=== PATIENT | male | born 1935 | race Caucasian/White ===

== ENCOUNTER 2023-10-26 18:15 | Emergency (ER) | payer OTHER, SELFPAY ==
[2023-10-26 18:16] VITALS: BP 152/85
[2023-10-26 18:36] LABS: % Basophils 1.6 % (0-2); % Eosinophils 2.4 % (0-6); % Immature Granulocytes 0.5 % (0-0.5); % Lymphocytes 40.2 % (20.5-51.1); % Monocytes 6.4 % (1.7-9.3); % Neutrophils 48.9 % (42.2-75.2); Absolute Basophils 0.1 10^3/uL (0-0.2); Absolute Eosinophils 0.1 10^3/uL (0-0.7); Absolute Lymphocytes 2.2 10^3/uL (1.2-3.4); Absolute Monocytes 0.4 10^3/uL (0.1-0.6); Absolute Neutrophils 2.7 10^3/uL (1.4-6.5); Hematocrit 35.7 % (39.0-52.0); Hemoglobin 12.1 g/dL (13.0-18.0); Mean Corp Hgb Conc. 33.9 g/dL (33.0-37.0); Mean Corpuscular Hgb 30.2 pg (27.0-31.0); Mean Platelet Volume 10.3 fL (7.4-10.4); Nucleated Red Blood Cells % 0 % (-); Platelet Count 154 10^3/uL (130-400); Red Blood Cell Count 4.01 10^6/uL (4.70-6.10); Red Cell Dist. Width 14.3 % (11.5-14.5); White Blood Cell Count 5.5 10^3/uL (4.8-10.8)
[2023-10-26 18:47] LABS: ALT (SGPT) 14 U/L (0-50); AST (SGOT) 23 U/L (17-59); Albumin 4.7 g/dl (3.5-5.0); Alkaline Phosphatase 62 U/L (38-126); Blood Urea Nitrogen 28 mg/dl (9-20); Carbon Dioxide 27 mmol/L (22-30); Chloride 99 mmol/L (98-107); Glucose 143 mg/dl (70-99); Potassium 3.4 mmol/L (3.5-5.1); Sodium 134 mmol/L (135-145); Total Bilirubin 1.2 mg/dl (0.2-1.3); Total Protein 8.4 g/dl (6.3-8.2); eGFR 48.95
[2023-10-26 19:47] VITALS: BP 154/80
[2023-10-26 20:00] VITALS: BP 126/115
--- NOTE | 2023-10-26 20:41 | ED.GENMED ---
History of Present Illness
General
Chief Complaint: Blood Pressure Problem
Source: patient and spouse
Exam Limitations: none
Time Seen by Provider: 10/26/23 20:04
Nursing documentation reviewed up to this point in time: agreed with
Travel History
Have you had any contact with someone who has COVID-19?: No
Do you have any symptoms of coronavirus? Fever > 100 degrees, chills, cough, shortness of breath, sore throat, loss of taste or smell, muscle aches, or headache?: No
History of Present Illness
History of Present Illness:
This is an 88-year-old gentleman who resides at home with his . He has history of hypertension maintained on hydrochlorothiazide and spironolactone. He states blood pressure is generally well-controlled on these 2 medications but over the past
week he is concerned that blood pressure has been elevated along with overall not feeling well over the past week. He admits to intermittent nausea without vomiting, decreased appetite over the past week, intermittent loose stools alternating with
constipation passing some firm to hard stools accompanied with intermittent mid to lower abdominal discomfort. He denies abdominal pain and admits that when he massages his lower abdomen the discomfort resolves. He did take a dose of Pepto-Bismol
earlier today and abdominal discomfort has improved.
With elevated blood pressure especially yesterday with systolic blood pressure in the 180s he called his PCP and was recommended to double up his hydrochlorothiazide and spironolactone which she has done so since yesterday. Despite doing so his
blood pressure remains elevated prompting ED visit.
No close contacts with similar symptoms. He denies fever nor chills. He denies headache. He did have brief episode of dizziness 1 week ago without other associated symptoms. No further episodes of dizziness.
He admits to somewhat chronic urinary hesitancy but denies dysuria nor hematuria, denies neck nor back pain, denies chest pain nor palpitations, no vision difficulty.
No recent travel nor recent antibiotic use.
No prior abdominal surgeries.
His only daily medications are hydrochlorothiazide and spironolactone.
Past History
Past History
ED Past Medical History: HTN and Other (Macular degeneration, glaucoma)
ED Past Surgical History: None
Social History
Tobacco: Former smoker
Alcohol: None
Drug: None
Personal:
Living: with family
Employment: Retired
Family History
Family History: Other (Noncontributory)
Phy Exam
Physical Exam
Physical Exam:
GENERAL: 88-year-old gentleman appears his stated age, awake and alert, pleasant, appears in no acute distress. is accompanying
EYE: pupils equal and reactive. anicteric
NECK: Supple, nontender, no meningismus, no significant adenopathy.
ENT: posterior pharynx is clear, oral mucosa is dry. No rhinorrhea.
CARDIAC: Regular rate and rhythm. no murmur.
LUNGS: Clear breath sounds bilaterally, no acute respiratory distress, no wheezes/rales/rhonchi
ABDOMEN: Soft, nondistended, without focal tenderness, no r/g, no cvat. normoactive BS.
NEUROLOGICAL: Alert and oriented x3, no focal neuro deficits. Gait is steady.
SKIN: Warm and dry, normal color, skin intact. No rash.
MUSCULOSKELETAL: No C/C/E. peripheral pulses are full and equal b/l. No palpable tenderness.
PSYCH: Normal and appropriate interaction.
Course
Orders/Labs/Results
Orders:
Orders
10/26/23 18:21
Electrocardiogram (*1) Urgent
Reason for Study: Hypertension, Benign
EKG- Treatment ONCE
10/26/23 18:29
Complete Blood Count/With Diff Urgent
Comprehensive Metabolic Panel Urgent
10/26/23 20:39
0.9% Sodium Chloride 1000 ml [Nss] 1,000 ml IV BOLUS
Potassium Chloride Powder [Klor-Con] 20 meq PO NOW STA
10/26/23 20:51
Urinalysis Reflex To Culture Urgent
Date Specimen was Collected: 10/26/23
Time Specimen was Collected: 20:48
Abnormal Lab Results
10/26/23
18:29
RBC 4.01 L 10^6/uL
(4.70-6.10)
Hgb 12.1 L g/dL
(13.0-18.0)
Hct 35.7 L %
(39.0-52.0)
Sodium 134 L mmol/L
(135-145)
Potassium 3.4 L mmol/L
(3.5-5.1)
BUN 28 H mg/dl
(9-20)
Creatinine 1.4 H mg/dL
(0.7-1.3)
Glucose 143 H mg/dl
(70-99)
Total Protein 8.4 H g/dl
(6.3-8.2)
10/26/23 18:29
10/26/23 18:29
Vital Signs
Initial and Last Documented VS:
Initial Vital Signs
Temp Pulse Resp BP Pulse Ox
97.7 F 80 18 152/85 96
10/26/23 18:16 10/26/23 18:16 10/26/23 18:16 10/26/23 18:16 10/26/23 18:16
Last Documented Vital Signs
Temp Pulse Resp BP Pulse Ox
97.7 F 65 14 146/76 97
10/26/23 18:16 10/26/23 22:54 10/26/23 22:54 10/26/23 22:54 10/26/23 22:54
MDM/Problems Addressed
Differential Diagnosis Includes:
Patient presents with accelerated hypertension with longstanding history of hypertension that is generally well-controlled.
Initial blood pressure 152/85, has improved to 126 systolic without intervention.
Along with elevated blood pressure this week patient has had a constitution of symptoms including nausea, poor oral intake, intermittent loose stools with constipation and intermittent lower abdominal discomfort.
Concern for gastroenteritis, constipation, UTI, less likely intermittent bowel obstruction.
Clinically appears dry, concern for acute kidney injury, electrolyte abnormality.
Labs thus far reveal mild but stable anemia, normal white blood cell count of 5.5.
BUN and creatinine are elevated at 28/1.4 have trended up from previous results April 2023 at 19/1.0.
Mild hyponatremia at 137 along with very mild hypokalemia of 3.4. This could be related to increased dose of diuretics since yesterday along with poor oral intake over the past week.
Will hydrate with IV fluids and replete potassium orally.
Will check urinalysis.
Abdominal exam is soft, nontender. Imaging considered but will hold off at this point especially with reassuring, nontender exam and reassuring labs.
*Pulse Oximetry
Patient hypoxic: no
*EKG
Interpreted by ED Provider?: Yes
Interpretation: normal
Comparison EKG: no comparison EKG present
Rate: normal
Rhythm: sinus
[place]: normal axis
Interval: normal interval
QRS Pattern: normal QRS
Ischemia: no ischemia
*Category Development Manager Interpretation
Rate: normal
Interpretation: normal
Rhythm: sinus
*Critical Care Note
Total Time (30-74mins, 75-104mins- exclusive of procedures): Not Applicable
Update Note
Update Note:
10/26/2023 2254 PM
Patient feeling well.
No return of abdominal discomfort and abdomen remains soft and nontender.
Systolic blood pressure 120s to 150.
Urinalysis is negative.
Patient will be discharged to home and recommended to maintain a bland diet, stay well-hydrated on a daily basis.
Recommend he continue to monitor his blood pressure at home but only once daily, record results and follow-up with PCP for recheck.
ED Attending Note
-
Portions of this chart may have been created with voice recognition software.� Occasional wrong word or��sound alike� substitutions may have occurred due to the inherent limitations of voice recognition software.
Discharge Plan
Departure
Patient Disposition: Home (Routine Discharge)
Date of Disposition: 10/26/23
Time of Disposition: 22:50
Patient with high blood pressure during this ER visit?: No
Discharge Problem:
Accelerated hypertension, Gastroenteritis
Instructions: High Blood Pressure (DC), [place] Diet
Referrals:
Arnold Rivera MD [Family Provider] - Call in 1-3 days for appt
Interventions
Interventions:
*Risk Screen - Suicide Last Done: 10/26/23 18:16
*General Assessment Last Done: 10/26/23 18:16
*Neglect/Abuse Screening Last Done: 10/26/23 18:16
ED- Fall Risk Assessment Last Done: 10/26/23 22:58
*ED COVID-19 Vaccine History Last Done: 10/26/23 22:58
*Nursing Disposition Last Done: 10/26/23 22:58
[place]-[facility] Assessment Last Done: 10/26/23 19:52
ED- Cardiac Assessment Last Done: 10/26/23 19:52
ED- Neurological Assessment Last Done: 10/26/23 19:52
ED- Pulmonary Assessment Last Done: 10/26/23 19:52
Discharge Date and Time
Discharge Date/Time: 10/26/23 22:59
[2023-10-26] MEDS: NSS 1000 IV (20:44)
[2023-10-26] MEDS: KLOR-CON 20 MEQ PO (20:44)
[2023-10-26 20:58] LABS: Urine Albumin Negative (Neg - Trace); Urine Bilirubin Negative (Negative); Urine Character Clear (Clear); Urine Color Straw; Urine Glucose Negative (Negative); Urine Ketone Negative (Negative); Urine Leukocyte Negative (Negative); Urine Nitrite Negative (Negative); Urine Occult Blood Negative (Negative); Urine Urobilinogen Negative (Neg - 1+)
[2023-10-26 21:00] VITALS: BP 147/78
[2023-10-26 22:00] VITALS: BP 153/82
[2023-10-26 22:54] VITALS: BP 146/76
== END 2023-10-26 22:59 | disposition home or self-care (01) ==
LOC: EMR 18:15
PROVIDERS: Emergency Medicine; EMERGENCY PHYSICIAN Emergency Medicine; FAMILY PHYSICIAN Internal Medicine Geriatric Medicine
DX: K52.9 Noninfective gastroenteritis and colitis, unspecified (principal); I10 Essential (primary) hypertension; D64.9 Anemia, unspecified; E87.1 Hypo-osmolality and hyponatremia; E87.6 Hypokalemia; Z87.891 Personal history of nicotine dependence
CPT/HCPCS: 99284; 96360; 80053; 81003; 85025; 93005

== ENCOUNTER → 2023-10-29 07:32 | Outpatient (REF) | payer OTHER, SELFPAY ==
[2023-10-29 09:03] LABS: % Eosinophils 5.8 % (0-6); % Immature Granulocytes 0.2 % (0-0.5); % Lymphocytes 40.3 % (20.5-51.1); % Monocytes 9.6 % (1.7-9.3); % Neutrophils 42.1 % (42.2-75.2); Absolute Basophils 0.1 10^3/uL (0-0.2); Absolute Eosinophils 0.3 10^3/uL (0-0.7); Absolute Monocytes 0.5 10^3/uL (0.1-0.6); Absolute Neutrophils 2.1 10^3/uL (1.4-6.5); Hematocrit 35.3 % (39.0-52.0); Hemoglobin 11.3 g/dL (13.0-18.0); Mean Corpuscular Hgb 29.7 pg (27.0-31.0); Mean Corpuscular Volume 92.7 fL (80.0-94.0); Mean Platelet Volume 10.9 fL (7.4-10.4); Nucleated Red Blood Cells % 0 % (-); Platelet Count 157 10^3/uL (130-400); Red Blood Cell Count 3.81 10^6/uL (4.70-6.10); Red Cell Dist. Width 14.1 % (11.5-14.5)
[2023-10-29 09:12] LABS: Urine Albumin Negative (Neg - Trace); Urine Bilirubin Negative (Negative); Urine Character Clear (Clear); Urine Color Yellow; Urine Glucose Negative (Negative); Urine Ketone Negative (Negative); Urine Leukocyte Negative (Negative); Urine Nitrite Negative (Negative); Urine Occult Blood Negative (Negative); Urine Specific Gravity 1.005 (<1.030); Urine Urobilinogen Negative (Neg - 1+)
[2023-10-29 10:26] LABS: ALT (SGPT) 13 U/L (0-50); AST (SGOT) 18 U/L (17-59); Albumin 4.5 g/dl (3.5-5.0); Alkaline Phosphatase 57 U/L (38-126); Blood Urea Nitrogen 25 mg/dl (9-20); Calcium 8.9 mg/dl (8.4-10.2); Carbon Dioxide 25 mmol/L (22-30); Chloride 102 mmol/L (98-107); Glucose 104 mg/dl (70-99); HDL Cholesterol 55 mg/dl; LDL Cholesterol, Calculated 116 mg/dl; Potassium 3.9 mmol/L (3.5-5.1); Sodium 136 mmol/L (135-145); Total Bilirubin 1.8 mg/dl (0.2-1.3); Total Cholesterol 196 mg/dl (50-199); Total Protein 7.8 g/dl (6.3-8.2); Triglyceride 127 mg/dl (10-149); Very Low Density Lipoprotein 25 mg/dl (0-30); eGFR 45.06
[2023-10-29 10:54] LABS: TSH Reflex To Free T4 3.13 uIU/ml (0.47-4.68)
[2023-10-29 11:30] LABS: Glycohemoglobin (HgbA1c) 5.3 % (4.0-5.6)
== END ==
LOC: HWLAB 07:32
PROVIDERS: ATTENDING PHYSICIAN Nurse Practitioner Family
DX: I10 Essential (primary) hypertension (principal); E78.2 Mixed hyperlipidemia; R73.01 Impaired fasting glucose
CPT/HCPCS: 36415; 80053; 80061; 81003; 83036; 84443; 85025

== ENCOUNTER → 2023-11-20 06:26 | Day surgery (SDC) | payer OTHER, SELFPAY | LOC: GI 06:26 | PROVIDERS: ATTENDING PHYSICIAN Internal Medicine Gastroenterology; FAMILY PHYSICIAN Internal Medicine Geriatric Medicine | DX: K22.89 Other specified disease of esophagus (principal); R10.13 Epigastric pain; K29.50 Unspecified chronic gastritis without bleeding | CPT/HCPCS: 43239; 88305; 88342 ==

== ENCOUNTER → 2023-12-04 07:31 | Outpatient (REF) | payer OTHER, SELFPAY ==
[2023-12-04 09:59] LABS: % Eosinophils 7.6 % (0-6); % Immature Granulocytes 0.6 % (0-0.5); % Lymphocytes 42.1 % (20.5-51.1); % Monocytes 7.4 % (1.7-9.3); % Neutrophils 39.3 % (42.2-75.2); Absolute Basophils 0.2 10^3/uL (0-0.2); Absolute Eosinophils 0.4 10^3/uL (0-0.7); Absolute Lymphocytes 2.1 10^3/uL (1.2-3.4); Absolute Monocytes 0.4 10^3/uL (0.1-0.6); Hematocrit 33.9 % (39.0-52.0); Hemoglobin 10.9 g/dL (13.0-18.0); Mean Corp Hgb Conc. 32.2 g/dL (33.0-37.0); Mean Corpuscular Hgb 29.4 pg (27.0-31.0); Mean Corpuscular Volume 91.4 fL (80.0-94.0); Mean Platelet Volume 10.3 fL (7.4-10.4); Nucleated Red Blood Cells % 0 % (-); Platelet Count 197 10^3/uL (130-400); Red Blood Cell Count 3.71 10^6/uL (4.70-6.10); Red Cell Dist. Width 12.7 % (11.5-14.5)
[2023-12-04 10:13] LABS: ALT (SGPT) 11 U/L (0-50); AST (SGOT) 19 U/L (17-59); Albumin 4.3 g/dl (3.5-5.0); Alkaline Phosphatase 55 U/L (38-126); Blood Urea Nitrogen 28 mg/dl (9-20); Calcium 9.5 mg/dl (8.4-10.2); Carbon Dioxide 25 mmol/L (22-30); Chloride 102 mmol/L (98-107); Direct Bilirubin 0.4 mg/dl (0.0-0.4); Glucose 109 mg/dl (70-99); Iron 149 ug/dl (49-181); Potassium 3.8 mmol/L (3.5-5.1); Sodium 137 mmol/L (135-145); Total Bilirubin 1.2 mg/dl (0.2-1.3); Total Protein 7.8 g/dl (6.3-8.2); eGFR 38.78
[2023-12-04 10:25] LABS: Percent Saturation 52 % (20-50); Total Iron Binding Capacity 285 ug/dl (261-462)
== END ==
LOC: HWLAB 07:31
PROVIDERS: ATTENDING PHYSICIAN Internal Medicine Gastroenterology; FAMILY PHYSICIAN Nurse Practitioner Family
DX: I10 Essential (primary) hypertension (principal); D64.9 Anemia, unspecified; R79.89 Other specified abnormal findings of blood chemistry; E80.4 Gilbert syndrome
CPT/HCPCS: 36415; 80053; 82248; 82728; 83540; 83550; 85025

== ENCOUNTER → 2023-12-07 07:34 | Outpatient (REF) | payer OTHER, SELFPAY | LOC: HWRAD 07:34 | PROVIDERS: ATTENDING PHYSICIAN Internal Medicine Gastroenterology; FAMILY PHYSICIAN Nurse Practitioner Family | DX: E80.4 Gilbert syndrome (principal) | CPT/HCPCS: 76700 ==

== ENCOUNTER → 2024-02-29 08:35 | Outpatient (REF) | payer OTHER, SELFPAY ==
[2024-02-29 11:50] LABS: Albumin 4.4 g/dl (3.5-5.0); Blood Urea Nitrogen 30 mg/dl (9-20); Calcium 9.4 mg/dl (8.4-10.2); Carbon Dioxide 29 mmol/L (22-30); Chloride 101 mmol/L (98-107); Glucose 90 mg/dl (70-99); Phosphorus 3.8 mg/dl (2.5-4.5); Potassium 3.7 mmol/L (3.5-5.1); Sodium 138 mmol/L (135-145); Uric Acid 5.8 mg/dl (3.5-8.5); eGFR 48.65
[2024-02-29 12:01] LABS: Protein/creatinine Ratio 0.1; Urine Protein 6 mg/dl
[2024-02-29 12:05] LABS: Microalbumin, Random Urine <0.6 mg/dl (0.6-1.7)
[2024-02-29 12:25] LABS: PSA, Total - Diagnostic 0.33 ng/ml (0.0-4.0); TSH Reflex To Free T4 2.34 uIU/ml (0.47-4.68)
[2024-03-02 10:22] LABS: Intact PTH 24.9 pg/ml (13.6-85.8)
[2024-03-02 12:33] LABS: 24 Hour Urine Total Volume Random mL; Urine Collection Length Random hr; Urine Free Kappa Light Chains 34.08 mg/L (0.00-32.90); Urine Free Lambda Light Chains 2.61 mg/L (0.00-3.79)
[2024-03-02 22:49] LABS: Alpha 1 Globulin 0.25 g/dL (0.19-0.46); Alpha 2 Globulin 0.62 g/dL (0.48-1.05); SPEP IFE Reflex Not Done; Total Protein-Electrophoresis 7.2 g/dL (6.3-8.2)
== END ==
LOC: HWLAB 08:35
PROVIDERS: ATTENDING PHYSICIAN Specialist; FAMILY PHYSICIAN Internal Medicine Geriatric Medicine
DX: R63.4 Abnormal weight loss (principal); D64.9 Anemia, unspecified; C61 Malignant neoplasm of prostate; N18.32 Chronic kidney disease, stage 3b
CPT/HCPCS: 36415; 80069; 82043; 82570; 83521; 83970; 84153; 84155; 84156; 84165; 84443; 84550; 86335

== ENCOUNTER → 2024-06-23 07:25 | Outpatient (REF) | payer OTHER, SELFPAY ==
[2024-06-23 09:24] LABS: % Basophils 1.8 % (0-2); % Eosinophils 4.2 % (0-6); % Immature Granulocytes 0.5 % (0-0.5); % Monocytes 7.2 % (1.7-9.3); % Neutrophils 44.3 % (42.2-75.2); Absolute Basophils 0.1 10^3/uL (0-0.2); Absolute Eosinophils 0.2 10^3/uL (0-0.7); Absolute Lymphocytes 1.8 10^3/uL (1.2-3.4); Absolute Monocytes 0.3 10^3/uL (0.1-0.6); Absolute Neutrophils 1.9 10^3/uL (1.4-6.5); Hematocrit 36.2 % (39.0-52.0); Hemoglobin 11.9 g/dL (13.0-18.0); Mean Corp Hgb Conc. 32.9 g/dL (33.0-37.0); Mean Corpuscular Hgb 29.9 pg (27.0-31.0); Nucleated Red Blood Cells % 0 % (-); Platelet Count 153 10^3/uL (130-400); Red Blood Cell Count 3.98 10^6/uL (4.70-6.10); Red Cell Dist. Width 13.9 % (11.5-14.5); White Blood Cell Count 4.3 10^3/uL (4.8-10.8)
[2024-06-23 09:43] LABS: Urine Albumin Negative (Neg - Trace); Urine Bilirubin Negative (Negative); Urine Character Clear (Clear); Urine Color Straw; Urine Glucose Negative (Negative); Urine Ketone Negative (Negative); Urine Leukocyte Negative (Negative); Urine Nitrite Negative (Negative); Urine Occult Blood Negative (Negative); Urine Urobilinogen Negative (Neg - 1+)
[2024-06-23 10:27] LABS: Glycohemoglobin (HgbA1c) 5.3 % (4.0-5.6)
[2024-06-23 10:40] LABS: ALT (SGPT) 16 U/L (0-50); AST (SGOT) 21 U/L (17-59); Albumin 4.5 g/dl (3.5-5.0); Alkaline Phosphatase 38 U/L (38-126); Blood Urea Nitrogen 22 mg/dl (9-20); Calcium 9.2 mg/dl (8.4-10.2); Carbon Dioxide 26 mmol/L (22-30); Chloride 102 mmol/L (98-107); Glucose 103 mg/dl (70-99); HDL Cholesterol 53 mg/dl; LDL Cholesterol, Calculated 129 mg/dl; Potassium 4.2 mmol/L (3.5-5.1); Sodium 140 mmol/L (135-145); Total Bilirubin 1.5 mg/dl (0.2-1.3); Total Cholesterol 208 mg/dl (50-199); Total Protein 7.7 g/dl (6.3-8.2); Triglyceride 134 mg/dl (10-149); Very Low Density Lipoprotein 26 mg/dl (0-30); eGFR 53.17
[2024-06-23 10:56] LABS: Vitamin D, 25-OH*** 56.7 ng/mL (30-80)
[2024-06-23 11:09] LABS: TSH Reflex To Free T4 5.71 uIU/ml (0.47-4.68)
[2024-06-23 11:37] LABS: Free T4 0.97 ng/dl (0.78-2.19)
== END ==
LOC: HWLAB 07:25
PROVIDERS: ATTENDING PHYSICIAN Specialist; FAMILY PHYSICIAN Nurse Practitioner Family
DX: I10 Essential (primary) hypertension (principal); D64.9 Anemia, unspecified; R63.4 Abnormal weight loss; K21.9 Gastro-esophageal reflux disease without esophagitis; R79.89 Other specified abnormal findings of blood chemistry; K59.09 Other constipation; E78.2 Mixed hyperlipidemia; R73.01 Impaired fasting glucose; K80.20 Calculus of gallbladder without cholecystitis without obstruction
CPT/HCPCS: 36415; 80053; 80061; 81003; 82306; 83036; 84439; 84443; 85025

== ENCOUNTER → 2024-07-18 09:44 | Outpatient (REF) | payer OTHER, SELFPAY | LOC: HWRCS 09:44 | PROVIDERS: ATTENDING PHYSICIAN Nurse Practitioner Primary Care | DX: R01.1 Cardiac murmur, unspecified (principal); I10 Essential (primary) hypertension | CPT/HCPCS: 93005; 93306 ==

== ENCOUNTER → 2024-09-08 08:06 | Outpatient (REF) | payer OTHER, SELFPAY ==
[2024-09-08 10:55] LABS: % Basophils 1.5 % (0-2); % Eosinophils 4.7 % (0-6); % Immature Granulocytes 0.7 % (0-0.5); % Lymphocytes 37.6 % (20.5-51.1); % Monocytes 6.5 % (1.7-9.3); Absolute Basophils 0.1 10^3/uL (0-0.2); Absolute Eosinophils 0.3 10^3/uL (0-0.7); Absolute Monocytes 0.4 10^3/uL (0.1-0.6); Absolute Neutrophils 2.6 10^3/uL (1.4-6.5); Hematocrit 35.7 % (39.0-52.0); Hemoglobin 11.6 g/dL (13.0-18.0); Mean Corp Hgb Conc. 32.5 g/dL (33.0-37.0); Mean Corpuscular Hgb 30.2 pg (27.0-31.0); Mean Platelet Volume 11.3 fL (7.4-10.4); Nucleated Red Blood Cells % 0 % (-); Platelet Count 141 10^3/uL (130-400); Red Blood Cell Count 3.84 10^6/uL (4.70-6.10); Red Cell Dist. Width 13.5 % (11.5-14.5); White Blood Cell Count 5.4 10^3/uL (4.8-10.8)
[2024-09-08 11:11] LABS: Albumin 4.6 g/dl (3.5-5.0); Blood Urea Nitrogen 24 mg/dl (9-20); Calcium 8.7 mg/dl (8.4-10.2); Carbon Dioxide 26 mmol/L (22-30); Chloride 102 mmol/L (98-107); Glucose 99 mg/dl (70-99); Phosphorus 3.5 mg/dl (2.5-4.5); Potassium 3.9 mmol/L (3.5-5.1); Sodium 138 mmol/L (135-145); eGFR 58.53
== END ==
LOC: HWLAB 08:06
PROVIDERS: ATTENDING PHYSICIAN Specialist; FAMILY PHYSICIAN Internal Medicine Geriatric Medicine
DX: R79.89 Other specified abnormal findings of blood chemistry (principal); E78.2 Mixed hyperlipidemia; E61.1 Iron deficiency; I10 Essential (primary) hypertension
CPT/HCPCS: 36415; 80069; 85025

== ENCOUNTER → 2024-10-03 07:51 | Outpatient (REF) | payer OTHER, SELFPAY ==
[2024-10-03 09:42] LABS: % Basophils 1.4 % (0-2); % Eosinophils 3.5 % (0-6); % Immature Granulocytes 0.8 % (0-0.5); % Lymphocytes 36.2 % (20.5-51.1); % Monocytes 7.7 % (1.7-9.3); % Neutrophils 50.4 % (42.2-75.2); Absolute Basophils 0.1 10^3/uL (0-0.2); Absolute Eosinophils 0.2 10^3/uL (0-0.7); Absolute Lymphocytes 1.8 10^3/uL (1.2-3.4); Absolute Monocytes 0.4 10^3/uL (0.1-0.6); Absolute Neutrophils 2.6 10^3/uL (1.4-6.5); Hematocrit 35.1 % (39.0-52.0); Hemoglobin 11.4 g/dL (13.0-18.0); Mean Corp Hgb Conc. 32.5 g/dL (33.0-37.0); Mean Corpuscular Hgb 30.2 pg (27.0-31.0); Mean Corpuscular Volume 92.9 fL (80.0-94.0); Nucleated Red Blood Cells % 0 % (-); Platelet Count 146 10^3/uL (130-400); Red Blood Cell Count 3.78 10^6/uL (4.70-6.10); Red Cell Dist. Width 13.4 % (11.5-14.5); White Blood Cell Count 5.1 10^3/uL (4.8-10.8)
[2024-10-03 09:49] LABS: ALT (SGPT) 18 U/L (0-50); AST (SGOT) 19 U/L (17-59); Albumin 4.4 g/dl (3.5-5.0); Alkaline Phosphatase 50 U/L (38-126); Blood Urea Nitrogen 23 mg/dl (9-20); Calcium 9.1 mg/dl (8.4-10.2); Carbon Dioxide 25 mmol/L (22-30); Chloride 104 mmol/L (98-107); Glucose 107 mg/dl (70-99); HDL Cholesterol 48 mg/dl; LDL Cholesterol, Calculated 54 mg/dl; Potassium 3.9 mmol/L (3.5-5.1); Sodium 137 mmol/L (135-145); Total Bilirubin 1.5 mg/dl (0.2-1.3); Total Cholesterol 123 mg/dl (50-199); Total Protein 7.1 g/dl (6.3-8.2); Triglyceride 106 mg/dl (10-149); Very Low Density Lipoprotein 21 mg/dl (0-30); eGFR 58.53
[2024-10-03 10:10] LABS: Free T4 0.95 ng/dl (0.78-2.19)
[2024-10-03 10:23] LABS: TSH 3.33 uIU/ml (0.47-4.68)
[2024-10-03 10:59] LABS: Folate 15.4 ng/ml (2.76-20); Vitamin B12 855 pg/ml (239-931)
== END ==
LOC: HWLAB 07:51
PROVIDERS: ATTENDING PHYSICIAN Nurse Practitioner Primary Care; REFERRING PHYSICIAN Specialist
DX: E78.2 Mixed hyperlipidemia (principal); N18.31 Chronic kidney disease, stage 3a; D64.9 Anemia, unspecified; E03.9 Hypothyroidism, unspecified
CPT/HCPCS: 36415; 80053; 80061; 82607; 82746; 84439; 84443; 85025

== ENCOUNTER → 2025-01-24 09:15 | Outpatient (REF) | payer OTHER, SELFPAY | LOC: WDC 09:15 | PROVIDERS: ATTENDING PHYSICIAN Nurse Practitioner Primary Care | DX: N63.42 Unspecified lump in left breast, subareolar (principal) | CPT/HCPCS: 76642; 77062; 77066 ==

== ENCOUNTER → 2025-02-13 10:01 | Outpatient (REF) | payer SELFPAY | LOC: HWRAD 10:01 | PROVIDERS: ATTENDING PHYSICIAN Nurse Practitioner Primary Care; REFERRING PHYSICIAN Internal Medicine | DX: E78.2 Mixed hyperlipidemia (principal); I25.10 Atherosclerotic heart disease of native coronary artery without angina pectoris | CPT/HCPCS: 75571 ==

== ENCOUNTER 2025-02-17 11:41 | Inpatient (IN) | payer OTHER, SELFPAY ==
[2025-02-15] VITALS (8 sets, daily range): BP systolic 120–181; BP diastolic 58–116; BMI 21.1; BMI 20.8
[2025-02-15 16:41] LABS: Glucose - Point of Care 108 mg/dl (70-99)
--- NOTE | 2025-02-15 16:48 | ED.CVA ---
History of Present Illness
General
Chief Complaint: CVA/TIA Symptoms
Source: patient and spouse
Exam Limitations: none
Time Seen by Provider: 02/15/25 16:40
Nursing documentation reviewed up to this point in time: agreed with
Onset of Stroke Symptoms
Onset of symptoms known: Yes
Date of onset of symptoms: 02/15/25
History of Present Illness
History of Present Illness:
89-year-old male presents emergency department due to difficulty speaking that began about 30 minutes prior to arrival. He was last seen normal 2 hours ago by his . He has a history of a stroke in the past about 2002.
Past History
Past History
ED Past Medical History: CVA, HTN and Other (Macular degeneration, glaucoma)
ED Past Surgical History: None
Social History
Tobacco: Former smoker
Alcohol: None
Drug: None
Personal:
Living: with family
Employment: Retired
Family History
Family History: Other (Noncontributory)
Review of Systems
Review of Systems
Allergies reviewed?: Yes
All Other Systems: Not applicable
Constitutional: Reports no symptoms
EENT: Reports no symptoms
Respiratory: Reports no symptoms
Cardiac: Reports no symptoms
ABD/GI: Reports no symptoms
: Reports no symptoms
Musculoskeletal: Reports no symptoms
Skin: Reports no symptoms
Neurological: Reports other (Difficulty speaking)
Endocrine: Reports no symptoms
Hematologic/Lymphatic: Reports no symptoms
Psychiatric: Reports no symptoms
Phy Exam
Physical Exam
Physical Exam:
Physical Exam
General: no apparent distress, not acutely ill
Neck: supple. no meningeal signs. normal posterior pharynx
Heart: s1/s2 regular rate and rhythm, no murmur. equal radial
pulses.
HEENT: Pupils equal round reactive to light, EOMI
Lungs: no acute respiratory distress. clear bilaterally
Abdomen: normal bowel sounds. not tender. no CVAT
Neuro: alert and oriented. no focal neurological deficits cranial nerves II through XII intact, except intermittent expressive aphasia
Skin: no rash
Psychiatric: well kept. interactive and cooperative
Extremities: no edema. no calf tenderness. negative homans. good distal pulses
NIH Stroke Score
Level of Consciousness: 0 - Alert
LOC questions: 0-Answers both correctly
LOC Commands: 0-Performs both correctly
Best Gaze: 0-Normal
Visual Joseph: 0=Normal, no visual loss
Facial palsy: 0=Normal, symmetrical
Motor - Right Arm: 0=No drift 10 seconds
Motor - Left Arm: 0=No drift 10 seconds
Motor - Right Le-No drift 5 seconds
Motor - Left Le-No drift 5 seconds
Limb Ataxia: 0-Absent
Sensation: 0-Normal
Best Language: 1-Mild aphasia
Dysarthria: 0-Normal
Extinction and Inattention: 0-No abnormality
Total Score:: 1
Course
Orders/Labs/Results
Orders:
Orders
02/15/25 16:40
Electrocardiogram (*1) Stat
Reason for Study: Other
Other Reason for Exam: neuro symptoms
CT BRAIN PERF STROKE ALERT Urgent
Comment:
Reason For Exam: expressive aphasia [address] HEAD STROKE ALERT W/o Cont Urgent
Comment:
Reason For Exam: expressive aphasia [address] HEAD/NECK ANG STROKE ALERT Urgent
Comment:
Reason For Exam: expressive aphasia 30 min ago
Cardiac Monitoring- Treatment ONCE
EKG- Treatment ONCE
IV Insert/Care/Rem.- Treatment PRN
02/15/25 16:47
Complete Blood Count/With Diff Urgent
Comprehensive Metabolic Panel Urgent
Erythrocyte Sed Rate Urgent
Comment: ADD ON
Glycohemoglobin (HgbA1c) Urgent
PTT Urgent
Prothrombin Time Urgent
02/15/25 19:04
Admit/Transfer Patient As Directed
Co-Sign Provider:
Level of Care: Observation services
Assign to:: Telemetry
Physician / Group: Mario Burton
Diagnosis: TIA, severe stenosis proximal Lf ICA
Reason for Telemetry: CVA/TIA
Date to Stop Telemetry: 02/18/25
Time to Stop Telemetry: 11:00
PRN Pain Medication Management As Directed
May give lesser potent ordered pain med per pt: Yes
preference::
Protocol:: Medication orders for pain may be administered in a
manner that supports deferring to patient preference
when the pt is:
- Requesting an ordered lesser potent pain medication.
Least to most potent pain medications are defined
as: acetaminophen < NSAID < tramadol < opioids
(morphine, oxycodone, hydromorphone).
- Requesting a lesser dose of the same medication IF
ORDERED.
- Requesting a less intrusive route of administration
if both routes are prescribed by the provider (PO <
IV).
02/15/25 19:05
Code Status As Directed
Resuscitation Status: Full Code
02/15/25 19:10
Aspirin 325 mg PO NOW STA
Clopidogrel Bisulfate [Plavix] 300 mg PO NOW STA
02/15/25 20:21
Acetaminophen [Tylenol/Feverall] 650 mg RECTAL Q4HPRN PRN
Acetaminophen [Tylenol] 650 mg PO Q4HPRN PRN
Hydrochlorothiazide [Oretic] 25 mg PO BID
02/15/25 20:21
Type+Screen Routine
Case Management Consult ONCE
Case Management Consult: Discharge Planning
Comment: stroke/tia
DIETARY IP CONSULT Routine
Reason for Consult: stroke/TIA
NEUROLOGY CONSULT Urgent
Consulting Provider: Karl Weaver
Was physician already notified: Yes
[place] Dispatcher Urgent
Urinalysis Routine
MR Brain Without Contrast Routine
Comment:
Reason For Exam: stroke/TIA
Recent pill cam endoscopy?: No
Activity As Directed
Activity Level: As Tolerated
NIH Stroke Scale As Directed
Directions: Per protocol
Comment: every shift and with any change in condition or mental status
Neurological Checks As Directed
Frequency: q4h
Additional Instructions:: q4h x 24h upon admission to the floor, then qshift & with any change in condition
and mental status
Patient Education As Directed
Type: Stroke education packet
Comment: provide to patient and family
Pneumatic Compression Sleeves As Directed
Type: Knee high
Swallow Screening CVA/TIA ONLY As Directed
Comment: NPO until swallowing screening completed
If patient FAILS swallow screening:: NPO, Speech Therapy consult, Aspiration Precautions
If patient PASSES swallow screening, diet:: Cholesterol Lowering
Vital Signs As Directed
Frequency: Per unit guidelines
Weight As Directed
Frequency: Once
Comment: on admission
Ot Eval And Treat Routine
Pt Eval And Treat Routine
Activity Level: As Tolerated
Speech Therapy Eval & Treat Routine
DX Deep Vein Thrombosis Video Routine
02/15/25 22:00
Spironolactone [Aldactone] 25 mg PO HS
02/15/25 22:05
Troponin I Routine
02/16/25 06:00
Basic Metabolic Panel IN AM
Cardiovascular Evaluation IN AM
Complete Blood Count/No Diff IN AM
02/16/25 08:00
Aspirin Chewable [Low Strength Aspirin] 81 mg PO DAILY
Clopidogrel Bisulfate [Plavix] 75 mg PO DAILY
Rosuvastatin Calcium [Crestor] 10 mg PO DAILY
Spironolactone [Aldactone] 50 mg PO DAILY
02/18/25 11:00
DC Protocol for Telemetry ONCE
Abnormal Lab Results
02/15/25 02/15/25
16:39 16:47
RBC 3.91 L 10^6/uL
(4.70-6.10)
Hgb 11.6 L g/dL
(13.0-18.0)
Hct 35.1 L %
(39.0-52.0)
Plt Count 125 L 10^3/uL
(130-400)
MPV 11.6 H fL
(7.4-10.4)
Immature Gran % 0.6 H %
(0-0.5)
ESR 25 H mm/hour
(0-20)
BUN 25 H mg/dl
(9-20)
Glucose 103 H mg/dl
(70-99)
AST 13 L U/L
(17-59)
POC Glucose 108 H mg/dl
(70-99)
02/15/25 16:47
02/15/25 16:47
Vital Signs
Initial and Last Documented VS:
Initial Vital Signs
Temp Pulse Resp BP Pulse Ox
98.9 F 70 18 157/82 97
02/15/25 16:40 02/15/25 16:40 02/15/25 16:40 02/15/25 16:40 02/15/25 16:40
Last Documented Vital Signs
Temp Pulse Resp BP Pulse Ox
98.3 F 64 18 170/75 99
02/15/25 20:33 02/15/25 21:11 02/15/25 20:33 02/15/25 21:11 02/15/25 20:33
MDM/Problems Addressed
Differential Diagnosis Includes:
Intracranial hemorrhage, CVA
MDM/Problems Addressed:
89-year-old male with TIA. No indication for TNK. Admit to hospitalist for dual antiplatelet therapy and further evaluation with vascular surgery.
Chronic conditions affecting care: HTN
*Radiology
Radiology exam reviewed: radiology read reviewed (CT head no acute findings, brain perfusion study no acute finding, head and neck CT angiography shows carotid stenosis vertebral stenosis, no acute findings)
*Pulse Oximetry
SaO2: 97
Oxygen Mode of Delivery: Room air
Patient hypoxic: no
*EKG
Interpreted by ED Provider?: Yes
EKG Intrepretation Date: 02/15/25
EKG Intrepretation Time: 16:40
Interpretation: abnormal
Comparison EKG: no changes
Heart Rate: 71
Rate: normal
Rhythm: sinus
[place]: normal axis
Interval: first degree heart block
QRS Pattern: normal QRS
Ischemia: no ischemia
*Mule Spinner Interpretation
Rate: normal
Interpretation: normal
Heart Rate: 70
Rhythm: sinus
*Critical Care Note
Total Time (30-74mins, 75-104mins- exclusive of procedures): Not Applicable
Patient Management
Social determinants of health affecting care: Living situation and Strong social support
Discussion with other providers: Hospitalist and Relationship Mgr (neurology)
Escalation/DeEscalation of care consider admission/obs:
admit indicated
ED Attending Note
-
Portions of this chart may have been created with voice recognition software.� Occasional wrong word or��sound alike� substitutions may have occurred due to the inherent limitations of voice recognition software.
Discharge Plan
Departure
Patient Disposition: Admit
Date of Disposition: 02/15/25
Time of Disposition: 17:49
Admit to: Telemetry
Presentation/result/management discussed w/ accepting MD/DO: Hospitalist
Patient with high blood pressure during this ER visit?: Yes
Condition: Good
Discharge Problem:
TIA (transient ischemic attack)
Interventions
Interventions:
*Risk Screen - Suicide Last Done: 02/15/25 16:40
*General Assessment Last Done: 02/15/25 16:40
*Neglect/Abuse Screening Last Done: 02/15/25 20:20
*ED- Fall Risk Assessment Last Done: 02/15/25 16:40
*ED COVID-19 Vaccine History Last Done: 02/15/25 16:40
*Nursing Disposition Last Done: 02/15/25 20:20
ED- Pulmonary Assessment Last Done: 02/15/25 16:40
ED- Neurological Assessment Last Done: 02/15/25 20:00
ED- Cardiac Assessment Last Done: 02/15/25 16:40
ED Swallowing Screen Last Done: 02/15/25 16:40
Discharge Date and Time
Discharge Date/Time: 02/15/25 20:31
[2025-02-15 17:07] LABS: APTT 26.3 Sec (23.4-35.0); INR 0.98; PT 13.5 Sec (11.4-14.6)
[2025-02-15 17:12] LABS: ALT (SGPT) 13 U/L (0-50); AST (SGOT) 13 U/L (17-59); Albumin 4.8 g/dl (3.5-5.0); Alkaline Phosphatase 49 U/L (38-126); Blood Urea Nitrogen 25 mg/dl (9-20); Calcium 9.2 mg/dl (8.4-10.2); Carbon Dioxide 24 mmol/L (22-30); Chloride 104 mmol/L (98-107); Estimated Creatinine Clearance 38 ml/min; Glucose 103 mg/dl (70-99); Potassium 4.0 mmol/L (3.5-5.1); Sodium 137 mmol/L (135-145); Total Protein 7.8 g/dl (6.3-8.2); eGFR 58.17
[2025-02-15 17:19] LABS: Hematocrit 35.1 % (39.0-52.0); Hemoglobin 11.6 g/dL (13.0-18.0); Mean Corp Hgb Conc. 33.0 g/dL (33.0-37.0); Mean Corpuscular Volume 89.8 fL (80.0-94.0); Nucleated Red Blood Cells % 0 % (-); Platelet Count 125 10^3/uL (130-400); Red Cell Dist. Width 13.4 % (11.5-14.5)
--- NOTE | 2025-02-15 18:21 | HPS.HSE ---
Family Physician
-
Family Physician: Jennifer Arredondo
Chief Complaint
-
slurred speech
History of Present Illness
Patient is a 89-year-old male with past medical history significant for hypertension, hyperlipidemia, hyperaldosteronism and GERD who presented to [facility] ED for evaluation of slurred speech. Patient and at bedside who assisted in HPI. Patient
reports that this afternoon around [id number] patient says he started having issues with his speech, described as slurred. Patient was last seen at baseline 2 hours prior to arrival by prior to her leaving the home. She states slurred
speech began shortly after she returned home. He does confirm some generalized weakness but does not feel it was worse on one side verse the other. Denies any dizziness, change in eyesight, palpitations or confusion.
Medical History
Past Medical History
Past Medical History: Reports Other
Additional Past Medical History:
hypertension
hyperlipidemia
hyperaldosteronism
GERD
CKD IIIb
chronic anemia
Hx CVA 2005
Hx prostate cancer
Past Surgical History: Reports Other
Additional Past Surgical History:
Bilateral cataracts 09/22/2022
Prostate biopsy 2005
MOHS, left ear 01/01
Social History
Tobacco: Former Smoker
Alcohol: None
Drug: None
Personal:
Living: With Family
Employment: Retired
Family History
Family History: Other (Father: HTN, CVA; Mother: CVA; Sister: CVA)
Allergies / Home Medications
Allergies reflects when Allergies were last updated in [employer].
Home Medications with original date entered in [employer]
Allergy/Medication List:
Allergies
Allergy/AdvReac Type Severity Reaction Status Date / Time
No Known Allergies Allergy Verified 02/15/25 16:39
Home Medications
ascorbic acid (vitamin C) 500 mg capsule 500 mg PO DAILY Supplement 02/15/25
aspirin 81 mg tablet 81 mg PO DAILY Blood Clot Prevention/Tx 02/15/25
cyanocobalamin (vitamin B-12) 1,000 mcg tablet 1,000 mcg PO DAILY Supplement 02/15/25
hydrochlorothiazide 25 mg tablet 25 mg PO BID Blood Pressure 02/15/25
magnesium glycinate 400 mg PO DIRECTED Supplement 02/15/25
mv-mn-folic 200 mcg-vit K 15 mcg-lutein 5 mg-zeaxanthin 1 mg capsule (PreserVision AREDS 2 Plus Multivit) 1 cap PO BID Supplement 02/15/25
rosuvastatin 10 mg tablet 10 mg PO DAILY High Cholesterol 02/15/25
spironolactone 25 mg tablet 25 mg PO HS Blood Pressure 02/15/25
spironolactone 25 mg tablet 50 mg PO DAILY Blood Pressure 02/15/25
zinc 50 mg tablet 50 mg PO DAILY Supplement 02/15/25
Review of Systems
-
History Source: Patient
Constitutional: Reports No Symptoms
EENT: Reports No Symptoms
Respiratory: Reports No Symptoms
Cardiac: Reports No Symptoms
Abdomen/GI: Reports No Symptoms
: Reports No Symptoms
Musculoskeletal: Reports No Symptoms
Skin: Reports No Symptoms
Neurological: Reports Weakness (generalized ) and Other (slurred speech )
Endocrine: Reports No Symptoms
Hematologic/Lymphatic: Reports No Symptoms
Psych: Reports No Symptoms
Physical Exam
Vital Signs
Vital Signs
Temp Pulse Resp BP Pulse Ox
98.9 F 72 22 158/72 96
02/15/25 16:40 02/15/25 17:15 02/15/25 17:15 02/15/25 17:13 02/15/25 17:15
Physical Exam
General: Well Developed, Well Nourished and No Apparent Distress
HEENT: NormoCephalic, Moist mucous membranes and Atraumatic
Respiratory: Clear and Non Labored Respirations
Cardiac: S1/S2 and Regular Rhythm; No Murmur, Rub or Gallop
GI: Soft, Non Tender, Non Distended and Normal Bowel Sounds
Rectal: Deferred by Provider
Genito-urinary: Deferred by me
Musculoskeletal: No Clubbing, No Cyanosis and No Edema
Skin: No Rash
Neuro: Awake, Alert, AO x 3, Nonfocal/grossly intact, Cranial Nerves Intact (intact II-XII), No Sensory Deficits and Other ( reporting speech is off from baseline, is clear to this provider and not slurred )
Psych: Calm
Laboratory Results
-
02/15/25 16:47
02/15/25 16:47
Laboratory Results
PT 13.5 Sec (11.4-14.6) 02/15/25 16:47
INR 0.98 02/15/25 16:47
APTT 26.3 Sec (23.4-35.0) 02/15/25 16:47
Total Bilirubin 1.0 mg/dl (0.2-1.3) 02/15/25 16:47
AST 13 U/L (17-59) L 02/15/25 16:47
ALT 13 U/L (0-50) 02/15/25 16:47
Alkaline Phosphatase 49 U/L (38-126) 02/15/25 16:47
Data Reviewed
-
CT Scan: Report Reviewed by me
Lab Data: Labs Reviewed by me (hgb 11.6, hct 35.1, BUN 25, creat 1.2, est CrCl 38, eGFR 58.17)
Impression/Plan
-
IMPRESSION/PLAN:
#slurred speech and generalized weakness likely 2/2 TIA
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
#Hx CVA [address]: 1. No CT evidence for acute intracranial hemorrhage or transcortical infarct.
2. SEVERE WHITE MATTER LEUKOARAIOSIS in the frontal and parietal lobes.
3. Small chronic infarcts in the periventricular left frontal lobe and left caudate nucleus.
4. Severe right temporal lobe volume loss. Moderate volume loss in the left temporal lobe, parietal lobes, and frontal lobes suggesting a CHRONIC NEURODEGENERATIVE DISEASE.
5. Severe calcific atherosclerotic plaque in the intracranial internal carotid and vertebral arteries.
Head/Neck CTA: NECK CTA:
1. SEVERE STENOSIS (greater than 70% diameter) in the PROXIMAL LEFT ICA caused by a large amount of soft and calcific atherosclerotic plaque.
2. Less than 50% diameter stenosis in the proximal right ICA.
3. 50-70% diameter stenosis at the origin of the left vertebral artery.
4. No CTA evidence for stenosis or occlusion of the right vertebral artery.
5. 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 Mild multilevel cervical spinal cord compression and central canal stenosis. Severe bilateral
neural foraminal narrowing.
HEAD CTA:
1. Severe calcific atherosclerotic plaque in both intracranial internal carotid arteries causing 50-70% diameter stenosis in the clinoid segments bilaterally (left greater than right).
2. Severe calcific atherosclerotic plaque in both intracranial vertebral arteries causing less than 50% diameter stenosis.
3. 50-70% diameter stenosis in the P1 segment of the right posterior cerebral artery.
4. Severe white matter leukoaraiosis in both cerebral hemispheres.
5. Small chronic periventricular white matter infarct in the posterior left frontal lobe.
6. Moderate cerebral and cerebellar volume loss (greatest in the right temporal lobe).
EKG: SINUS RHYTHM WITH 1ST DEGREE A-V BLOCK
- Admit to telemetry
- Consult Neurology
- Consult Vascular Surgery
- DAPT
- NIH and neuro assessments per protocol
#hypertension
#hyperaldosteronism
- continue hydrochlorothiazide and spironolactone
#hyperlipidemia
- continue rosuvastatin
#CKD IIIb
BUN 25, creat 1.2, est CrCl 38, eGFR 58.17
- appears to be baseline
- monitor kidney function
#chronic anemia
hgb 11.6, hct 35.1
- stable
- monitor h/h
#GERD
#Hx prostate cancer
Code status: full code
DVT prophylaxis: SCDs
--- NOTE | 2025-02-15 19:25 | W.PN.UPDATE ---
Update Note
Progress Note Update
This note serves as an addendum to the H&P by atg architect JILLIAN Esha Nesbitt
HPI
89F Former smoker, HX CVA 2002 , HTN, Macular degeneration, seen at ER
- due to difficulty speaking that began about 30 minutes prior to arrival.
- last seen normal 2 hours ago by his .
Vital Signs
Temp Pulse Resp BP Pulse Ox
98.9 F 72 22 158/72 96
02/15/25 16:40 02/15/25 17:15 02/15/25 17:15 02/15/25 17:13 02/15/25 17:15
PE
Gen: no apparent distress
Neck: supple
Lungs: symmetric AE
Cor: RRR S1 S2
Abdomen: benign
EVP [place]: symmetric facial expression, alert and oriented. grossly NFND
MS: no edema
Psych: interactive and cooperative
Abnormal Lab
02/15/25 02/15/25
16:39 16:47
RBC 3.91 L
Hgb 11.6 L
Hct 35.1 L
Plt Count 125 L
MPV 11.6 H
Immature Gran % 0.6 H
BUN 25 H
Glucose 103 H
AST 13 L
POC Glucose 108 H
EKG
SINUS RHYTHM WITH 1ST DEGREE A-V BLOCK
OTHERWISE NORMAL ECG
WHEN COMPARED WITH ECG OF 18-JUL-2024 11:01,
TX INTERVAL HAS INCREASED
CT HEAD STROKE ALERT W/o Cont
1. No CT evidence for acute intracranial hemorrhage or transcortical infarct.
2. SEVERE WHITE MATTER LEUKOARAIOSIS in the frontal and parietal lobes.
3. Small chronic infarcts in the periventricular left frontal lobe and left caudate nucleus.
4. Severe right temporal lobe volume loss. Moderate volume loss in the left temporal lobe, parietal lobes, and frontal lobes suggesting a CHRONIC NEURODEGENERATIVE DISEASE.
5. Severe calcific atherosclerotic plaque in the intracranial internal carotid and vertebral arteries.
CT HEAD/NECK ANG STROKE ALERT
NECK CTA:
1. SEVERE STENOSIS (greater than 70% diameter) in the PROXIMAL LEFT ICA caused by a large amount of soft and calcific atherosclerotic plaque.
2. Less than 50% diameter stenosis in the proximal right ICA.
3. 50-70% diameter stenosis at the origin of the left vertebral artery.
4. No CTA evidence for stenosis or occlusion of the right vertebral artery.
5. 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 Mild multilevel cervical spinal cord compression and central canal stenosis. Severe bilateral neural foraminal narrowing.
HEAD CTA:
1. Severe calcific atherosclerotic plaque in both intracranial internal carotid arteries causing 50-70% diameter stenosis in the clinoid segments bilaterally (left greater than right).
2. Severe calcific atherosclerotic plaque in both intracranial vertebral arteries causing less than 50% diameter stenosis.
3. 50-70% diameter stenosis in the P1 segment of the right posterior cerebral artery.
4. Severe white matter leukoaraiosis in both cerebral hemispheres.
5. Small chronic periventricular white matter infarct in the posterior left frontal lobe.
6. Moderate cerebral and cerebellar volume loss (greatest in the right temporal lobe).
NO PRIOR hospitalist admission:
ASSESSMENT & PLAN
TIA, resolving expressive aphasia.
Severe stenosis in the proximal left ICA > 70 %
HX CVA 2005
- ER d/w Dr Knapp at [facility] indicate NOT TNK candidate
- DAPT
- Vascular consult
Severe stenosis in the proximal left ICA Hemodynamically significant ?
- await Vascular evaluation
Benign HTN
HX Hyperaldosteronism
- c/w HCTZ and spironolactone
Dyslipidemia
- on [employer] rosuvastatin
CKD3b
- Cr 1.2, est CrCl 38, eGFR 58.17
- appears to be baseline
Chronic anemia: Hb 11.6
- stable
HX prostate CA
DVT Px: SCD
Full code
OBS TLM
[2025-02-15] MEDS: PLAVIX 300 MG PO (19:42)
[2025-02-15] MEDS: ASPIRIN 325 MG PO (19:42)
[2025-02-15] MEDS: ALDACTONE 25 MG PO (21:11)
--- NOTE | 2025-02-15 21:15 | W.PN.UPDATE ---
Update Note
Progress Note Update
TT by RN to review patient's home medications. Patient states he takes Hydrochlorothiazide 25 mg PO daily and Spironolactone 25 mg PO BID. Orders changed to reflect home medication dosages/times.
[2025-02-15 22:43] LABS: Troponin I < 0.012 ng/ml
[2025-02-16] VITALS (8 sets, daily range): BP systolic 100–157; BP diastolic 63–85; PULSE 72
--- NOTE | 2025-02-16 00:41 | PTCARENOTE ---
Patient arrived to unit from ED via stretcher. Pt. able to safely ambulate from stretcher to bed in 318-2 on . Patient AAOx3 and able to make needs known. at bedside during admission. NIH 1, passed swallow screen. Oriented to unit. Call
roberts within reach. Plan of care ongoing.
[2025-02-16 05:12] LABS: Urine Character Clear (Clear)
[2025-02-16 07:32] LABS: Blood Urea Nitrogen 19 mg/dl (9-20); Calcium 9.4 mg/dl (8.4-10.2); Carbon Dioxide 26 mmol/L (22-30); Chloride 105 mmol/L (98-107); Estimated Creatinine Clearance 37 ml/min; Glucose 102 mg/dl (70-99); HDL Cholesterol 55 mg/dl; LDL Cholesterol, Calculated 47 mg/dl; Potassium 3.9 mmol/L (3.5-5.1); Sodium 139 mmol/L (135-145); Very Low Density Lipoprotein 17 mg/dl (0-30); eGFR 58.17
--- NOTE | 2025-02-16 07:44 | W.PN.HOSP.TC ---
Today's Communication/Plan
-
see plan
Assessment / Plan
Assessment / Plan
Gen: NAD, AAOx3.
Eyes: EOMI, PERRLA, no scleral icterus.
Neck: supple.
CV: RRR, +S1/S2, no m/r/g.
Resp: CTAB, no rales, wheezes, or rhonchi.
Abd: +BS, soft, NT, ND
Skin: No rashes.
Neuro: CN 2-12 intact, non-focal.
Psych: Normal mood and affect.
CT brain:
1. No CT evidence for acute intracranial hemorrhage or transcortical infarct.
2. SEVERE WHITE MATTER LEUKOARAIOSIS in the frontal and parietal lobes.
3. Small chronic infarcts in the periventricular left frontal lobe and left caudate nucleus.
4. Severe right temporal lobe volume loss. Moderate volume loss in the left temporal lobe, parietal lobes, and frontal lobes suggesting a CHRONIC NEURODEGENERATIVE DISEASE.
5. Severe calcific atherosclerotic plaque in the intracranial internal carotid and vertebral arteries.
NECK CTA:
1. SEVERE STENOSIS (greater than 70% diameter) in the PROXIMAL LEFT ICA caused by a large amount of soft and calcific atherosclerotic plaque.
2. Less than 50% diameter stenosis in the proximal right ICA.
3. 50-70% diameter stenosis at the origin of the left vertebral artery.
4. No CTA evidence for stenosis or occlusion of the right vertebral artery.
5. 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 Mild multilevel cervical spinal cord compression and central canal stenosis. Severe bilateral neural foraminal narrowing.
HEAD CTA:
1. Severe calcific atherosclerotic plaque in both intracranial internal carotid arteries causing 50-70% diameter stenosis in the clinoid segments bilaterally (left greater than right).
2. Severe calcific atherosclerotic plaque in both intracranial vertebral arteries causing less than 50% diameter stenosis.
3. 50-70% diameter stenosis in the P1 segment of the right posterior cerebral artery.
4. Severe white matter leukoaraiosis in both cerebral hemispheres.
5. Small chronic periventricular white matter infarct in the posterior left frontal lobe.
6. Moderate cerebral and cerebellar volume loss (greatest in the right temporal lobe).
Slurred speech:
-with generalized weakness
-concern for TIA vs CVA
-slurred speech has resolved
-with severe stenosis in the proximal L-ICA
-check MRI brain
-h/o CVA 2005
-cont ASA/statin/Plavix
-c/s neuro and vascular surgery
Other problems:
Essential HTN: cont Aldactone/HCTZ
Hyperaldosteronism: cont aldactone
HLD: Cont statin
CKD3b
Chronic anemia: trend Hb
GERD: start PPI
h/o prostate CA
FULL/SCDs
Anticipated Discharge: 24 - 48 hours
Subjective/Interval History
-
Date of Service: February 16, 2025
No new complaints.
Objective Data
-
Labs:
Laboratory Results
02/16/25
06:52
WBC Pending
Hgb Pending
Hct Pending
Plt Count Pending
Sodium 139
Potassium 3.9
Chloride 105
Carbon Dioxide 26
BUN 19
Creatinine 1.2
Glucose 102 H
Calcium 9.4
Vital Signs:
Vital Signs
Temp Pulse Resp BP Pulse Ox
97.5 F 66 16 110/63 93
02/16/25 02:53 02/16/25 02:53 02/16/25 02:53 02/16/25 02:53 02/16/25 02:53
I&O
02/15/25 02/16/25 02/17/25
06:59 06:59 06:59
Intake Total 480 / 480
Output Total 900 / 900
Balance -420 / -420
[2025-02-16 07:56] LABS: Hematocrit 36.8 % (39.0-52.0); Hemoglobin 12.3 g/dL (13.0-18.0); Mean Corp Hgb Conc. 33.4 g/dL (33.0-37.0); Mean Corpuscular Volume 90.0 fL (80.0-94.0); Platelet Count 130 10^3/uL (130-400); Red Cell Dist. Width 13.4 % (11.5-14.5)
--- NOTE | 2025-02-16 08:39 | CON.VAS ---
Addendum entered and electronically signed by Edward Rollins MD 02/16/25 14:40:
Seen and examined with LATOYA Galvez. Agree with findings as noted below. 89-year-old male with medical history as noted below. No prior history of any significant CAD/ME. He developed symptoms yesterday of expressive aphasia. He could not get out
his words that he was trying to say although he knew what he wanted to say. Symptoms had improved today. However he does note he had another episode this morning. No additional symptoms. No unilateral numbness or weakness. No speech dysarthria.
No prior symptoms of such.
On exam/he is awake and alert. He is in no acute distress. Breathing is unlabored. Moves all extremities well. Equal strength bilateral upper and lower extremities. I had difficulty eliciting any significant unilateral weakness (will defer to
neurology regarding full neurologic exam). Palpable pedal pulses bilaterally.
CT angiogram reviewed. High-grade left proximal internal carotid/carotid bulb stenosis with mixed plaque. Significant atherosclerotic calcified plaque but there is a moderate amount of soft plaque in the bulb as well.
Plan/ Symptomatic left carotid artery stenosis. Discussed with patient recommendation for revascularization. Discussed modalities of revascularization to be carotid endarterectomy versus carotid stenting (TCAR). Discussed both modalities with
him. Discussed recommendation for carotid endarterectomy. Discussed anticipated outcomes/recovery. Discussed risks including but not limited to bleeding, infection, cardiac complication/ME, cranial nerve injury, stroke (in symptomatic setting
approximately 2%). He understands all wishes to proceed. Plan LEFT carotid endarterectomy tomorrow a.m.
Original Note:
Consultation
Consultation Request
Date/Time Consultation Performed: 02/16/2025 0900
Requesting Provider: Hospitalist
Performing Provider: Sharon Galvez NP-C for Edward Rollins M.D.
Reason for Consultation: Left carotid stenosis
Medical History
-
Chief Complaint: Dysarthria and aphasia
History of Present Illness:
This is an 89-year-old right handed male with significant past medical history of stroke (presented with left upper extremity and lower extremity weakness with no residual weakness), prostate cancer, GERD, hypertension, hypercholesterolemia, and
chronic kidney disease who presented to [facility] on 02/15/2025 with reports of acute onset of dysarthria and aphasia. Patient endorses that around roughly 3 PM on 02/15/2025 he began to experience word finding difficulty and slurred speech,
which eventually led him to seek ED evaluation around 5 PM yesterday. He indicates that while in the ED symptoms wax and waned, but he endorses upon waking this morning he feels at his baseline self with complete resolution of speech difficulties.
He denies any accompanying additional symptoms including vision loss/changes, unilateral weakness, loss of bowel or bladder, facial asymmetry, dysphagia, or loss of consciousness. He does have a history of stroke in 2005 at that time he had mild
left upper extremity lower extremity weakness. He denies any residual weakness after stroke and feels he has regained full strength on his left side. Currently with no complaints. As part of stroke evaluation CTA head and neck was obtained in the
ED with greater than 70% stenosis at proximal left ICA, prompting vascular consultation. Denies prior history of seeing a vascular surgeon or surgical intervention. Denies claudication or rest pain.
Past Medical History
Past Medical History: Cancer (Prostate), CVA (2005), HTN and Other (Hyperlipidemia, hyperaldosteronism, CKD IIIb, chronic anemia)
Past Surgical History: Other (Bilateral cataracts, prostate biopsy, MOHS left ear)
Social History
Tobacco: Former Smoker (Indicates he is smoking history of roughly 15 years in his 20s to 30s, during this time he was a 'casual smoker' mostly only on weekends)
Alcohol: None
Drug: None
Personal:
Living: With Family
Employment: Retired
Family History
Family History: Other (Mother, father, sister with history of CVA)
Allergies / Home Medications
Allergy/AdvReac Type Severity Reaction Status Date / Time
No Known Allergies Allergy Verified 02/15/25 16:39
�Medication �Instructions �Recorded �Confirmed �Type
ascorbic acid (vitamin C) 500 mg 500 mg PO DAILY Supplement 02/15/25 02/15/25 History
capsule
aspirin 81 mg tablet 81 mg PO DAILY Blood Clot 02/15/25 02/15/25 History
Prevention/Tx
cyanocobalamin (vitamin B-12) 1,000 mcg PO DAILY Supplement 02/15/25 02/15/25 History
1,000 mcg tablet
hydrochlorothiazide 25 mg tablet 25 mg PO BID Blood Pressure 02/15/25 02/15/25 History
magnesium glycinate 400 mg PO DIRECTED Supplement 02/15/25 02/15/25 History
mv-mn-folic 200 mcg-vit K 15 1 cap PO BID Supplement 02/15/25 02/15/25 History
mcg-lutein 5 mg-zeaxanthin 1 mg
capsule (PreserVision AREDS 2 Plus
Multivit)
rosuvastatin 10 mg tablet 10 mg PO DAILY High Cholesterol 02/15/25 02/15/25 History
spironolactone 25 mg tablet 25 mg PO HS Blood Pressure 02/15/25 02/15/25 History
spironolactone 25 mg tablet 50 mg PO DAILY Blood Pressure 02/15/25 02/15/25 History
zinc 50 mg tablet 50 mg PO DAILY Supplement 02/15/25 02/15/25 History
Review of Systems
-
History Source: Patient
Constitutional: Reports No Symptoms
EENT: Reports No Symptoms
Respiratory: Reports No Symptoms
Cardiac: Reports No Symptoms
Abdomen/GI: Reports No Symptoms
: Reports No Symptoms
Musculoskeletal: Reports No Symptoms
Skin: Reports No Symptoms
Neurological: Reports Other (Dysarthria)
Endocrine: Reports No Symptoms
Physical Exam
Vital Signs
Temp Pulse Resp BP Pulse Ox
98.0 F 64 16 116/73 96
02/16/25 07:30 02/16/25 07:30 02/16/25 07:30 02/16/25 07:30 02/16/25 07:30
Lab Results
02/16/25 06:52
02/16/25 06:52
Troponin I < 0.012 ng/ml 02/15/25 22:05
Physical Exam
General: No Apparent Distress
HEENT: Normocephalic, Anicteric and Atraumatic
Respiratory: Non Labored Respirations
Cardiac: Negative JVD
GI: Soft, Non Tender and Non Distended
Musculoskeletal: No Edema
Skin: Warm
Neuro: AO x 3
Psych: Calm
Assessment / Plan
-
Assessment: 89-year-old male presented to [facility] ED on 02/15/2025 with dysarthria and aphasia, now resolved per patient with CT evidence of greater than 70% stenosis at proximal left ICA
Plan:
Will review with neurology to confirm suspicion that this is left symptomatic internal carotid artery stenosis, will consider surgical intervention. Final surgical plan per vascular attending.
I performed this shared service with the attending. I evaluated the patient [id number] and have entered clinical documentation as shown in the encounter note. I performed the following component(s):�history and physical exam. Note that medical
decision making is not final until attested by vascular attending.
--- NOTE | 2025-02-16 08:45 | PTOTSP ---
Speech Language Pathology
Pt seen for speech/language evaluations via the Quick Aphasia Battery (QAB), form 1. No difficulty noted, other than on reading subtest, as pt was unable to adequate see the words. No dysarthria noted with adequate diadochokinetic (DDK) rates.
Pt also seen for clinical bedside swallow evaluation. P.O. trials of puree, regular solids, and thin liquids provided. Adequate mastication, bolus formation, and A-P transit noted with no oral residue. No overt signs of aspiration.
Recommend:
(1) Regular solids/thin liquids
(2) General aspiration precautions
(3) Meds as tolerated
(4) [employer] SUPER[employer]OR to sign off
--- NOTE | 2025-02-16 09:09 | CON.NEURO4 ---
Addendum entered and electronically signed by Karl Weaver MD 02/16/25 12:03:
Studies reviewed.
I have personally examined the patient. I reviewed and agree with the [employer]EN [employer] DISTRIBUTOR's Note.
My addenda:
Awake, alert, interactive. No acute distress.
Speech intact.
Follows 2-step requests w/o difficulty. No tremor.
Extra-ocular movements grossly intact.
Facial movements full and symmetric. Hearing intact to normal conversational volume.
Normal UE movements bilaterally.
Neck: full ROM.
Chest: no dyspnea
Heart: no JVD
Ext: (-) Clubbing, (-) Cyanosis, (-) Edema
IMPRESSIONS/RECOMMENDATIONS:
Abrupt onset of aphasia
Most likely secondary to newly discovered left internal carotid artery stenosis
Appreciate vascular surgery evaluation for possible surgical remediation
Continue newly initiated clopidogrel in addition to the patient's usual aspirin; Future antiplatelet therapy as per vascular surgery, from a neurological perspective, would be okay to return to usual aspirin
Continue rosuvastatin 10 mg daily
Goal of near normotension, mild elevation okay based on the patient's current stenosis
Medical educational materials to be provided to the patient
D/W patient
All questions answered.
Will continue to follow patient.
Original Note:
Documented by User: Shirley Purdy NP 02/16/25 11:34
Consultation - Neurology 4
-
CONSULTING PHYSICIAN: Karl Weaver MD
REFERRING PHYSICIAN: Hospitalists/SOLO Roberts
DICTATED BY: SOLO Johnson
DATE/TIME OF REQUEST: 02/15/25
DATE/TIME OF CONSULTATION: 02/16/25
Reason for Consultation: Speech difficulty
History of Present Illness:
This is an 89-year-old right-handed male who has presented to the hospital on 02/15/25 with report of speech difficulty. Patient reports that yesterday (02/15/25) he was sitting on the couch talking to his at 1500 when he suddenly started having
speech difficulty. He reports he knew what he wanted to say but he couldn't form the words. He also notes that his head felt 'foggy.' On arrival in the ER, CT head and CT perfusion were obtained and were negative for any acute abnormalities. CTA
head/neck was obtained and demonstrates greater than 70% proximal left ICA stenosis. NIHSS was 1 for mild aphasia. He was not a candidate for TNK/IAT due to low NIHSS, resolving symptoms. Patient reports that his symptoms seemed to resolve within a
couple of hours. Today (02/16/25), he feels at his baseline. He has a distant history of stroke in 2005 in which he had left-sided weakness which resolved with time. He is taking aspirin 81mg daily.
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
Surgical History: b/l cataract removal, MOHS left ear, prostate biopsy
Family History: Reviewed and noncontributory.
Social History: Former smoker. Denies alcohol and illicit drug use.
Allergies: No known allergies
Home Medications: See below.
Review of Symptoms:
Patient denies any fever, headache, chest pain, shortness of breath, GI or symptoms.
�Per the HPI.�All systems are reviewed negative except above.
Physical Exam:
The patient is afebrile, abdomen is nondistended, breathing is unlabored, skin is warm and dry, no edema.
NIH Stroke Scale:
I performed the NIH stroke scale on the patient on 02/16/25 at 0915. The patient scored 0 points on the NIH stroke scale assessment, which were assigned as follows: See below.
Neurologic Examination:
The patient is awake, alert and oriented x 3. He is able to follow commands and answer questions appropriately. There is no aphasia or dysarthria. On cranial nerve assessment, pupils are 3 mm bilateral, round and reactive to light and
accommodation. +Left eye esotropia. Visual joseph are full to finger wave. Extraocular movements are intact. Facial sensations are intact and bilaterally symmetrical, there is no facial asymmetry. Hearing is diminished bilaterally to normal
conversation volume. Tongue palate and uvula are midline. Sternocleidomastoid strengths are full bilaterally. Motor strengths are 5/5 bilateral upper and lower extremities on medical research [place] scale. There is no drift or involuntary movement
noted. Deep tendon reflexes are 2+ bilateral upper and lower extremities and Babinski is absent bilaterally. There was no extinction noted on double simultaneous stimulation. Coordination is intact by finger to nose bilaterally.
Lab Results: See below.
Neuro Imaging:
1. CT Head 02/15/25: No CT evidence for acute intracranial hemorrhage or transcortical infarct. SEVERE WHITE MATTER LEUKOARAIOSIS in the frontal and parietal lobes. Small chronic infarcts in the periventricular left frontal lobe and left caudate
nucleus. Severe right temporal lobe volume loss. Moderate volume loss in the left temporal lobe, parietal lobes, and frontal lobes suggesting a CHRONIC NEURODEGENERATIVE DISEASE. Severe calcific atherosclerotic plaque in the intracranial internal
carotid and vertebral arteries.
2. CT Perfusion 02/15/25: CBF 0ml.
3. CTA head/neck 02/15/25: SEVERE STENOSIS (greater than 70% diameter) in the PROXIMAL LEFT ICA caused by a large amount of soft and calcific atherosclerotic plaque. Less than 50% diameter stenosis in the proximal right ICA. 50-70% diameter stenosis
at the origin of the left vertebral artery. 50-70% diameter stenosis in the P1 segment of the right posterior cerebral artery.
Differentials for the patient's presentation include:
1. Transient speech difficulty; etiology concerning for symptomatic L ICA stenosis. Small left hemisphere ischemic infarct possible.
Patient has the following risk factors for their symptoms: HTN, HLD, age, L ICA severe stenosis.
IV Tenecteplase/IAT candidacy: He was not a candidate for TNK/IAT due to low NIHSS, resolving symptoms.
Recommendations:
-MRI brain noncontrast pending.
-Continue DAPT with aspirin 81mg and clopidogrel 75mg daily x21 days. After 21 days, discontinue clopidogrel and continue aspirin monotherapy as this was unlikely a failure of aspirin.
-Goal normotension.
-LDL goal <70. LDL 47. Continue home rosuvastatin 10mg.
-Goal normoglycemia, hbA1c is 5.5.
-Vascular Surgery evaluation.
-NIHSS and neurological checks per unit guidelines.
-Provide patient with a stroke education packet.
-PT/OT/ST evaluations.
-DVT prophylaxis.
Discussed patient care with: Dr. Weaver, the patient
Vital Signs and Labs
-
Vital Signs and Labs:
Vital Signs
Temp Pulse Resp BP Pulse Ox
98.0 F 64 16 116/73 96
02/16/25 07:30 02/16/25 07:30 02/16/25 07:30 02/16/25 07:30 02/16/25 07:30
Lab Results
02/16/25 06:52
02/16/25 06:52
PT 13.5 Sec (11.4-14.6) 02/15/25 16:47
INR 0.98 02/15/25 16:47
APTT 26.3 Sec (23.4-35.0) 02/15/25 16:47
Sodium 139 mmol/L (135-145) 02/16/25 06:52
Potassium 3.9 mmol/L (3.5-5.1) 02/16/25 06:52
BUN 19 mg/dl (9-20) 02/16/25 06:52
Glucose 102 mg/dl (70-99) H 02/16/25 06:52
Calcium 9.4 mg/dl (8.4-10.2) 02/16/25 06:52
LDL Cholesterol, Calc 47 mg/dl 02/16/25 06:52
Medications
-
Active Medications
Generic Name Dose Route Start Last Admin
Trade Name Freq PRN Reason Stop Dose Admin
Acetaminophen 650 mg 02/15/25 20:21
Acetaminophen 650 Mg Rectal Suppository RECTAL 03/15/25 20:20
Q4HPRN PRN
NERI, mild pain, or temp >100.4F
Acetaminophen 650 mg 02/15/25 20:21
Acetaminophen 325 Mg Tablet PO 03/15/25 20:20
Q4HPRN PRN
NERI, mild pain, or temp >100.4F
Aspirin 81 mg 02/16/25 08:00 02/16/25 09:42
Aspirin 81 Mg Chewable Tablet PO 03/16/25 07:59 81 mg
DAILY ELENITA Administration
Clopidogrel Bisulfate 75 mg 02/16/25 08:00 02/16/25 09:43
Clopidogrel 75 Mg Tablet PO 03/16/25 07:59 75 mg
DAILY ELENITA Administration
Hydrochlorothiazide 25 mg 02/16/25 08:00 02/16/25 09:43
Hydrochlorothiazide 25 Mg Tablet PO 03/16/25 07:59 25 mg
DAILY ELENITA Administration
Pantoprazole Sodium 40 mg 02/16/25 08:00 02/16/25 09:43
Pantoprazole 40 Mg Delayed Release Tablet PO 03/16/25 07:59 40 mg
DAILY ELENITA Administration
Rosuvastatin Calcium 10 mg 02/16/25 08:00 02/16/25 09:42
Rosuvastatin (Crestor) 10 Mg Tablet PO 03/16/25 07:59 10 mg
DAILY ELENITA Administration
Sodium Chloride 0 flush 02/15/25 20:00
Sodium Chloride 0.9% (Flush) Syringe IV 03/15/25 19:59
PER PROTOCOL ELENITA
Spironolactone 25 mg 02/16/25 08:00 02/16/25 09:43
Spironolactone 25 Mg Tablet PO 03/16/25 07:59 25 mg
BID ELENITA Administration
Home Medications
�Medication �Instructions �Recorded
ascorbic acid (vitamin C) 500 mg 500 mg PO DAILY Supplement 02/15/25
capsule
aspirin 81 mg tablet 81 mg PO DAILY Blood Clot 02/15/25
Prevention/Tx
cyanocobalamin (vitamin B-12) 1,000 mcg PO DAILY Supplement 02/15/25
1,000 mcg tablet
hydrochlorothiazide 25 mg tablet 25 mg PO BID Blood Pressure 02/15/25
magnesium glycinate 400 mg PO DIRECTED Supplement 02/15/25
mv-mn-folic 200 mcg-vit K 15 1 cap PO BID Supplement 02/15/25
mcg-lutein 5 mg-zeaxanthin 1 mg
capsule (PreserVision AREDS 2 Plus
Multivit)
rosuvastatin 10 mg tablet 10 mg PO DAILY High Cholesterol 02/15/25
spironolactone 25 mg tablet 25 mg PO HS Blood Pressure 02/15/25
spironolactone 25 mg tablet 50 mg PO DAILY Blood Pressure 02/15/25
zinc 50 mg tablet 50 mg PO DAILY Supplement 02/15/25
NIH Stroke Score
Subsequent NIH Scale
Date of Subsequent NIH Scale: 02/16/25
Time of Subsequent NIH Scale: 09:15
NIH Stroke Score
Level of Consciousness: 0 - Alert
LOC Questions: 0-Answers both correctly
LOC Commands: 0-Performs both correctly
Best Horizontal Gaze: 0-Normal
Visual Joseph: 0=Normal, no visual loss
Facial Palsy: 0=Normal, symmetrical
Motor - Right Arm: 0=No drift 10 seconds
Motor - Left Arm: 0=No drift 10 seconds
Motor - Right Le-No drift 5 seconds
Motor - Left Le-No drift 5 seconds
Limb Ataxia: 0-Absent
Sensation: 0-Normal
Best Language: 0-No aphasia
Dysarthria: 0-Normal
Extinction and Inattention: 0-No abnormality
NIH Total Score:: 0
Modified [place] (mRS) Score
Modified [place] Scale (mRS): No symptoms
Score: 0
Alteplase Contraindication
Inclusion and Exclusion criteria reviewed: Yes

Documented by User: Karl Weaver MD 02/16/25 11:38
NIH Stroke Score
NIH Stroke Score
NIH Total Score:: 0
Modified [place] (mRS) Score
Score: 0
[2025-02-16] MEDS: LOW STRENGTH ASPIRIN 81 MG PO (09:42)
[2025-02-16] MEDS: CRESTOR 10 MG PO (09:42)
[2025-02-16] MEDS: PLAVIX 75 MG PO (09:43)
[2025-02-16] MEDS: ORETIC 25 MG PO (09:43)
[2025-02-16] MEDS: ALDACTONE 25 MG PO ×2 (09:43→19:57)
[2025-02-16] MEDS: PROTONIX 40 MG PO (09:43)
--- NOTE | 2025-02-16 09:48 | PTOTSP ---
The patient is independent with ambulation, demonstrating no balance, strength, or coordination deficits. No PT needs identified at this time, will sign off.
--- NOTE | 2025-02-16 09:48 | PTOTSP ---
pt currently demonstrates ability to complete simple ADLs, functional transfers, ambulation with supervision to no assistance. pt appears to functionally be close to baseline, no acute OT needs identified. will sign off.
[2025-02-16 10:34] LABS: Glycohemoglobin (HgbA1c) 5.5 % (4.0-5.6)
--- NOTE | 2025-02-16 11:04 | CM ---
Patient seen at bedside
IA completed
CM Consult completed stroke/tia
BOTELLO form explained & signed. In chart
ED on 02/15/2025 with dysarthria and aphasia, now resolved per patient with CT evidence of greater than 70% stenosis at proximal left ICA
vascular consulted
Lives with in 1 story home, no steps to enter
PLOF: Independent
Denies DME
Denies VN/Rehab
Denies insecurities
PCP: Jennifer Arredondo ([facility])
Pharmacy: [facility], [address], [place]
PLAN: tbd, follow hospital progress, CM to follow for needs
[2025-02-17] VITALS (32 sets, daily range): BP systolic 93–123; BP diastolic 45–78; BMI 21.0
[2025-02-17] MEDS: BACTROBAN 2% OINTMENT 1 APPLIC NASAL (06:07)
[2025-02-17] MEDS: PERIDEX 0.12% ORAL RINSE 15 ML PO (06:07)
[2025-02-17 06:50] LABS: Hematocrit 35.6 % (39.0-52.0); Hemoglobin 11.7 g/dL (13.0-18.0); Mean Corp Hgb Conc. 32.9 g/dL (33.0-37.0); Mean Corpuscular Volume 89.4 fL (80.0-94.0); Platelet Count 128 10^3/uL (130-400); Red Cell Dist. Width 13.1 % (11.5-14.5)
[2025-02-17 06:55] LABS: INR 1.05; PT 14.3 Sec (11.4-14.6)
[2025-02-17 06:56] LABS: APTT 28.1 Sec (23.4-35.0)
[2025-02-17 07:10] LABS: Blood Urea Nitrogen 25 mg/dl (9-20); Calcium 9.1 mg/dl (8.4-10.2); Carbon Dioxide 26 mmol/L (22-30); Chloride 104 mmol/L (98-107); Estimated Creatinine Clearance 35 ml/min; Glucose 98 mg/dl (70-99); Potassium 4.1 mmol/L (3.5-5.1); Sodium 137 mmol/L (135-145); eGFR 52.84
--- NOTE | 2025-02-17 07:17 | W.SUR.PREOP ---
Pre-Operative Surgical Note
-
I have examined this patient prior to the performance of the scheduled procedure.
The patient's condition is unchanged from the time of the current History and
Physical and the patient is able to undergo the scheduled procedure.
--- NOTE | 2025-02-17 07:25 | W.PN.UPDATE ---
Addendum entered and electronically signed by Edward Rollins MD 02/17/25 07:32:
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 In the body of the report which I reviewed, there is note that the popliteal vein appears very small in size. I noted that is well in my review of the
images. However cannot definitively say this is a thrombotic process and not compressive related to his severe edema. Regardless nothing I would offer invasively at this point for that. I do not know that anticoagulation is warranted if this is a
chronic process. Nothing further to add from a vascular surgical perspective. Will sign off. Please call with questions.
Original Note:
Update Note
Progress Note Update
Confirmed with patient surgical plan for left carotid endarterectomy. He is in agreement with proceeding. I discussed MRI finding of many small acute ischemic infarcts in the left frontal/parietal/temporal lobes (MCA territory) consistent with
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 He is fully understanding and fully cognizant. He is a very vibrant and cognitively high functioning 89-year-old. He understands our entire discussion and wishes to proceed with left carotid endarterectomy. I did
discuss with him that I am happy to speak to any family members. He consented to me talking to his and therefore I called her and updated her as well.
--- NOTE | 2025-02-17 10:00 | W.SUR.POST ---
Surgical Immediate Post Op
Note
Pre Op Diagnosis: Carotid stenosis
Post Op Diagnosis: Same
Procedure Performed: Left carotid endarterectomy with bovine pericardial patch angioplasty and EEG monitoring
Primary Surgeon: Edward Rollins M.D.
Secondary Surgeons: Keren BANDA
Anesthesia: General
Estimated Blood Loss: 30 cc
Fluids: See anesthesia flowsheet
Drains/Shunts: None
Specimens/Cultures: Left carotid plaque
Doppler/Duplex/Angio (Y/N): Y
Complications: None
Operative Findings: Woke from anesthesia and moving all extremities
--- NOTE | 2025-02-17 10:06 | OR.RPT ---
Operative Report
Operative Report
PROCEDURE DATE: 02/17/2025
Preoperative diagnosis: Symptomatic left carotid artery stenosis.
Postoperative diagnosis: Same
Procedure: Left carotid endarterectomy with bovine pericardial patch angioplasty and intraoperative EEG/SSEP monitoring.
Surgeon: Ayo
Print Binding And Finishing Worker: LATOYA Veliz, required full aspects of procedure including assistance with traction/countertraction, following suture line, assistance with closure.
Complications: None
Anesthesia: General
Indications for procedure:
Symptomatic left carotid artery stenosis with episodes of expressive aphasia. MRI confirmed left hemispheric small multiple infarcts in carotid distribution. Risk/benefits/alternatives of left carotid endarterectomy fully discussed. Patient
understood all wished to proceed.
Description of procedure:
Patient was identified brought to the operating room placed on the table in supine position. After the adequate administration of anesthesia and perioperative antibiotics he was prepped and draped in the standard surgical fashion. A standard
preoperative timeout was undertaken and everybody was in agreement the plan. A standard longitudinal incision was made in the left neck that was carried through the skin subcutaneous tissue. Using the electrocautery dissection was carried through
the platysma muscle layer and then alongside the anterior medial border of the sternocleidomastoid muscle. Note, likely due to Plavix loading while in the hospital, his subcutaneous tissues were very oozy, requiring prolonged efforts of hemostasis
as we moved along. Then using a combination of sharp dissection with the Metzenbaum scissors and electrocautery I dissected along the anterior medial border of the internal jugular vein. The common facial vein branch was ligated between silk ties
and then divided. I then deepened my retraction. The common carotid artery was identified and carefully dissected away from the surrounding structures take great care to avoid any injury to the structures. A vessel loop was passed around it which
was double looped, but not yet tightened. Note the vagus nerve was visualized and was protected from harm's way. I then continued my dissection up the common carotid artery to the bulb staying only on the anterior surface of the carotid artery.
Then I carried the dissection up to the internal carotid artery a few centimeters beyond the origin. As noted on CT scan, there was a tortuosity in the vessel there. In this vicinity the carotid artery was soft, and this correlated to CT findings.
I identified where it was soft and carefully circumferentially dissected the internal carotid artery with minimal mobilization and passed a vessel loop around it. Note the hypoglossal nerve was not visualized in our field and was felt to be
further cephalad. The patient was given an appropriate dose of heparin 6000 units. Next I dissected the anterior surface of the external carotid artery and superior thyroid branches. These were then carefully circumferentially dissected with
minimal mobilization and vessel loops passed around these which were double looped but not yet tightened. After 3 minutes of heparin circulation time and confirmation of optimization of the blood pressure with my anesthesiology colleagues, I
clamped the distal internal carotid artery where it was soft. There was no immediate EEG or SSEP changes. After 1 minute of test clamp time there was no changes noted. Therefore at this point, the vessel loops on the external carotid artery and
superior thyroid branches were tightened and the common carotid artery was clamped where it was soft proximally. An arteriotomy was made on the common carotid artery with an 11 blade and extended using a Crawford scissor. I extended the arteriotomy
onto the mid to distal internal carotid artery. As noted on CT scan, there was mixed plaque in the very proximal internal carotid artery/carotid bulb. However the predominance with soft hemorrhagic friable plaque centrally. This appeared to be
clearly the culprit of his recent multiple infarcts. A [place] was then used to endarterectomized the plaque. An endarterectomy plane was created, and the plaque was then endarterectomized. Distally I feathered the plaque out to a nice clean
endpoint in the distal internal carotid artery. Next I endarterectomized the intima back to normal intima in the common carotid artery, and the intima was cut flush there. I then grasped the plaque and everted plaque out of the origin of the
external carotid artery. The plaque was then sent off for specimen. The origin of the external carotid artery was carefully visualized and any fine debris were removed with fine forceps. Proximal and distal endpoints were then carefully
inspected. Any fine debris was removed with fine forceps, and the intima was noted to be nicely adherent proximally and distally. Next any fine debris were removed throughout the endarterectomy bed with fine forceps. I then flushed heparinized
saline. I was very satisfied. Then, I used a bovine pericardial patch to sew a patch angioplasty with a running 5-0 Prolene suture. Prior to completing and tying down my suture line, I backbled sequentially each branch and reclamped each branch
prior to unclamping the next branch. I then irrigated with heparinized saline. Then I completed and tied down my suture line. We then restored flow in the common carotid and external carotid arteries. Finally, we released flow in the internal
carotid artery. There was excellent pulsatile flow in all 3 vessels. There was an excellent Doppler signal in the internal carotid artery distal to the patch with a good normal low resistance Doppler signal. There was a good Doppler signal in the
external carotid artery as well. A few 6-0 Prolene [id number] sutures were placed along any bleeding points along the suture line. Protamine was given to reverse the heparin. Hemostasis was completely achieved. Note achieving hemostasis
took slightly longer than usual, due to needle hole oozing (likely Plavix effect), but we did achieve full hemostasis. We then irrigated and confirmed full hemostasis. We then closed in layers with 2-0 Vicryl layer to reapproximate the
sternocleidomastoid muscle, followed by 3-0 Vicryl platysma muscle running layer, followed by 4-0 Monocryl subcuticular stitch. Dermabond was applied. The patient tolerated procedure well. He awoke moving all extremities to command with tongue in
the midline. All sponge, needle, instrument counts were correct at the end of the case. The patient was transported to the recovery room in stable condition.
--- NOTE | 2025-02-17 10:12 | W.PN.HOSP.TC ---
Today's Communication/Plan
-
see plan
Assessment / Plan
Assessment / Plan
Gen: NAD, AAOx3.
Eyes: EOMI, PERRLA, no scleral icterus.
Neck: supple.
CV: RRR, +S1/S2, no m/r/g.
Resp: CTAB, no rales, wheezes, or rhonchi.
Abd: +BS, soft, NT, ND
Skin: No rashes.
Neuro: CN 2-12 intact, non-focal.
Psych: Normal mood and affect.
CT brain:
1. No CT evidence for acute intracranial hemorrhage or transcortical infarct.
2. SEVERE WHITE MATTER LEUKOARAIOSIS in the frontal and parietal lobes.
3. Small chronic infarcts in the periventricular left frontal lobe and left caudate nucleus.
4. Severe right temporal lobe volume loss. Moderate volume loss in the left temporal lobe, parietal lobes, and frontal lobes suggesting a CHRONIC NEURODEGENERATIVE DISEASE.
5. Severe calcific atherosclerotic plaque in the intracranial internal carotid and vertebral arteries.
NECK CTA:
1. SEVERE STENOSIS (greater than 70% diameter) in the PROXIMAL LEFT ICA caused by a large amount of soft and calcific atherosclerotic plaque.
2. Less than 50% diameter stenosis in the proximal right ICA.
3. 50-70% diameter stenosis at the origin of the left vertebral artery.
4. No CTA evidence for stenosis or occlusion of the right vertebral artery.
5. 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 Mild multilevel cervical spinal cord compression and central canal stenosis. Severe bilateral neural foraminal narrowing.
HEAD CTA:
1. Severe calcific atherosclerotic plaque in both intracranial internal carotid arteries causing 50-70% diameter stenosis in the clinoid segments bilaterally (left greater than right).
2. Severe calcific atherosclerotic plaque in both intracranial vertebral arteries causing less than 50% diameter stenosis.
3. 50-70% diameter stenosis in the P1 segment of the right posterior cerebral artery.
4. Severe white matter leukoaraiosis in both cerebral hemispheres.
5. Small chronic periventricular white matter infarct in the posterior left frontal lobe.
6. Moderate cerebral and cerebellar volume loss (greatest in the right temporal lobe).
MRI brain:
1. MANY SMALL ACUTE ISCHEMIC INFARCTS throughout the cortical collins matter and subcortical white matter of the left frontal lobe, left parietal lobe, and superior left temporal lobe (LEFT MIDDLE CEREBRAL ARTERY TERRITORY).
2. Severe white matter leukoaraiosis in the frontal and parietal lobes.
3. Small chronic infarct in the right cerebellar hemisphere.
4. Small chronic intraparenchymal microhemorrhage in the posterior right parietal lobe.
5. SEVERE BILATERAL TEMPORAL LOBE VOLUME LOSS consistent with a severe chronic neurodegenerative disease (probably Alzheimer's dementia).
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
-generalized weakness and dysarthria/slurred speech on admission
-with severe stenosis in the proximal L-ICA
-h/o CVA 2005
-cont ASA/statin/Plavix
-neuro and vascular surgery following
-s/p L CEA 02/17/25. Monitor BP closely post op, using cardene/neosynephrine to keep SBP within 100-165 range per protocol.
Other problems:
Essential HTN: cont Aldactone/HCTZ
Hyperaldosteronism: cont aldactone
HLD: Cont statin
CKD3b
Chronic anemia: trend Hb
GERD: cont PPI
h/o prostate CA
FULL/SCDs
Anticipated Discharge: 24 - 48 hours
Subjective/Interval History
-
Date of Service: February 17, 2025
Pt without acute complaints.
Objective Data
-
Labs:
Laboratory Results
02/17/25 02/17/25 02/17/25
06:01 06:02 10:02
WBC 5.0 Pending
Hgb 11.7 L Pending
Hct 35.6 L Pending
Plt Count 128 L Pending
PT 14.3 Pending
INR 1.05 Pending
APTT 28.1 Pending
Sodium 137 Pending
Potassium 4.1 Pending
Chloride 104 Pending
Carbon Dioxide 26 Pending
BUN 25 H Pending
Creatinine 1.3 Pending
Glucose 98 Pending
Calcium 9.1 Pending
Vital Signs:
Vital Signs
Temp Pulse Resp BP Pulse Ox
98.1 F 83 18 100/71 95
02/17/25 03:12 02/17/25 03:12 02/17/25 03:12 02/17/25 03:12 02/17/25 03:12
I&O
02/16/25 02/17/25 02/18/25
06:59 06:59 06:59
Intake Total 480 / 480 840 / 840
Output Total 900 / 900
Balance -420 / -420 840 / 840
--- NOTE | 2025-02-17 11:06 | CM ---
Patient unavailable - vascular surgery today
will transfer to ICU after surgery
PLAN: CM to follow for needs post-op
[2025-02-17 11:18] LABS: Hematocrit 31.8 % (39.0-52.0); Hemoglobin 10.5 g/dL (13.0-18.0); Mean Corp Hgb Conc. 33.0 g/dL (33.0-37.0); Mean Corpuscular Volume 90.1 fL (80.0-94.0); Platelet Count 112 10^3/uL (130-400); Red Cell Dist. Width 13.4 % (11.5-14.5)
[2025-02-17 11:21] LABS: INR 1.19; PT 15.4 Sec (11.4-14.6)
[2025-02-17 11:22] LABS: APTT 27.8 Sec (23.4-35.0)
[2025-02-17 11:35] LABS: Blood Urea Nitrogen 22 mg/dl (9-20); Calcium 7.9 mg/dl (8.4-10.2); Carbon Dioxide 23 mmol/L (22-30); Chloride 104 mmol/L (98-107); Estimated Creatinine Clearance 37 ml/min; Glucose 122 mg/dl (70-99); Potassium 4.0 mmol/L (3.5-5.1); Sodium 135 mmol/L (135-145); eGFR 58.17
[2025-02-17] MEDS: NSS 1000 IV ×2 (11:35→21:59)
--- NOTE | 2025-02-17 12:08 | PTCARENOTE ---
Pt received s/p L CEA. AAOx3. NSR on tele, HRs 70s. SpO2 97% on 2L nasal cannula. BP 102/58 MAP 70. Neuro checks per protocol. Neurologically intact (see worklist). L neck incision CDI. Approximated with surgical adhesive present. Localized
ecchymosis around incision. # 25 condom catheter applied for I&Os. Pt educated about bedrest/activity restrictions. Tolerating PO liquids at this time. at bedside. Pt resting in bed, call roberts in reach. Assessment documented.
[2025-02-17] MEDS: ORETIC PO (12:28)
[2025-02-17] MEDS: ALDACTONE PO (12:28)
[2025-02-17] MEDS: PROTONIX 40 MG PO (12:39)
[2025-02-17] MEDS: CRESTOR 10 MG PO (12:39)
[2025-02-17] MEDS: LOW STRENGTH ASPIRIN 81 MG PO (12:39)
[2025-02-17] MEDS: PLAVIX 75 MG PO (12:39)
--- NOTE | 2025-02-17 13:07 | CON.INTV ---
Consultation
Consultation Request
Date/Time Consultation Requested: 02/17
Date/Time Consultation Performed: 02/17
Reason for Consultation: Critical care
Medical History
-
History of Present Illness:
History obtained from the patient and reviewing the chart. Patient is a pleasant 89-year-old male with history of hypertension, hyperlipidemia, chronic kidney disease who presented on 02/15/2025 with slurred speech. Symptoms improved, however
imaging showed high-grade left proximal internal carotid stenosis with mixed plaque. In the interim, patient underwent left carotid endarterectomy with bovine patch angioplasty 02/17 without complication. Presently patient is without complaint. He
did have a mild headache preprocedure but this is improving. He denies any shortness of breath, chest pain. We are asked to help from critical care standpoint. Of note A-line is not in place
.
PMH: Hypertension, hyperlipidemia, GERD, chronic kidney disease, history of anemia. Records suggest history of stroke in 2005 and prostate cancer although patient denied history of cancer or stroke.
Past Medical History
Past Medical History: None (See above)
Past Surgical History: None (See above)
Social History
Tobacco: Former Smoker (Quit 50 years ago)
Alcohol: None
Drug: None
Personal:
Living: With Family
Employment: Retired (Teacher)
Family History
Family History: Other (Positive for stroke, hypertension)
Allergies / Home Medications
Allergies
Allergy/AdvReac Type Severity Reaction Status Date / Time
No Known Allergies Allergy Verified 02/15/25 16:39
Home Medications
�Medication �Instructions �Recorded �Confirmed �Last Taken �Type
ascorbic acid (vitamin C) 500 mg 500 mg PO DAILY Supplement 02/15/25 02/15/25 02/15/25 History
capsule
aspirin 81 mg tablet 81 mg PO DAILY Blood Clot 02/15/25 02/15/25 02/15/25 History
Prevention/Tx
cyanocobalamin (vitamin B-12) 1,000 mcg PO DAILY Supplement 02/15/25 02/15/25 02/15/25 History
1,000 mcg tablet
hydrochlorothiazide 25 mg tablet 25 mg PO DAILY Blood Pressure 02/15/25 02/16/25 02/15/25 History
magnesium glycinate 400 mg PO DIRECTED Supplement 02/15/25 02/15/25 02/15/25 History
mv-mn-folic 200 mcg-vit K 15 1 cap PO BID Supplement 02/15/25 02/15/25 02/15/25 History
mcg-lutein 5 mg-zeaxanthin 1 mg
capsule (PreserVision AREDS 2 Plus
Multivit)
rosuvastatin 10 mg tablet 10 mg PO DAILY High Cholesterol 02/15/25 02/15/25 02/15/25 History
spironolactone 25 mg tablet 25 mg PO HS Blood Pressure 02/15/25 02/15/25 02/15/25 History
spironolactone 25 mg tablet 50 mg PO DAILY Blood Pressure 02/15/25 02/15/25 02/15/25 History
zinc 50 mg tablet 50 mg PO DAILY Supplement 02/15/25 02/15/25 02/15/25 History
Review of Systems
-
All other systems: Negative unless noted
Vitals / Labs / Diagnostic Testing
Vital Signs
Temp Pulse Resp BP Pulse Ox
98 F 75 19 104/69 98
02/17/25 11:48 02/17/25 13:00 02/17/25 13:00 02/17/25 13:00 02/17/25 13:00
Lab Data
02/17/25 10:57
02/17/25 10:57
Laboratory Results
02/17/25 02/17/25
06:01 10:57
PT 14.3 15.4 H
INR 1.05 1.19
APTT 28.1 27.8
Diagnostic Testing:
Physical Exam
-
HEENT: Normocephalic, Anicteric and Other (Left carotid incision intact)
Cardiovascular: S1/S2, Regular Rhythm, Murmur (n), Rub (n) and Peripheral Edema (n)
Respiratory: Wheeze (n), Rales (n), Rhonchi (n) and Non-Labored Respirations
GI: Soft, Non Distended and Non Tender
Neurology: Awake, Alert, Oriented, No Motor Deficits (Cranial nerves intact) and Other (Pupils equal and reactive)
Skin: Good Color
General: Comfortable
Assessment
-
89-year-old male with history of hypertension, hyperlipidemia, presents with expressive aphasia with subsequently resolved, admitted 02/15/2025. Imaging revealed significant left carotid stenosis severe with large amount of mixed plaque. Patient
underwent left carotid endarterectomy without complication 02/17.
S/p LCEA, bovine patch angioplasty, 02/17/25
Expressive aphasia, resolved
Admitted 02/15/2025
Conditions present prior to admission
Hypertension/hyperlipidemia
History of hyperaldosteronism
Chronic kidney disease, baseline creatinine 1.2
History of anemia
GERD
History of prostate cancer
Distant tobacco history
Plan/recommendations
At this time, patient is critically ill post carotid endarterectomy but appears comfortable. He is without complaints. He has mild headache but this was present preprocedure
Expressive aphasia seems to have resolved
Moving forward, continue with management per vascular surgery
Blood pressure is stable
Neurological exam is nonfocal, cranial nerves intact
Chest x-ray postoperatively without acute findings
EKG sinus rhythm
Pain control
Neurochecks
Follow blood sugars
Antiplatelet therapy, statin therapy
IV fluids
A-line not in place but presently blood pressure adequate via cuff
Reviewed with critical care nursing
Will follow
TCCT 31 min
[2025-02-17] MEDS: NEO-SYNEPHRINE 250 IV (14:04)
--- NOTE | 2025-02-17 14:14 | PTCARENOTE ---
Phenylephrine gtt started at 20mcg/min for systolic BP goal 100-160. Pt BP 98/78 prior to initiation. Assessment unchanged.
[2025-02-17] MEDS: NON-FORMULARY ITEM 1 CAP PO (20:07)
[2025-02-17] MEDS: ALDACTONE 25 MG PO (20:08)
--- NOTE | 2025-02-17 23:18 | PTCARENOTE ---
Increased Bart increased due to low SBP. Pt is neurologically intact, AOx3, denies pain, SR/SB with 1st degree. no edema. Left carotid incision ecchymotic, approximated, closed with surgical glue, soft with no pain.
[2025-02-18] VITALS (12 sets, daily range): BP systolic 85–139; BP diastolic 53–83; BMI 20.8
[2025-02-18 03:54] LABS: INR 1.07; PT 14.2 Sec (11.4-14.6)
[2025-02-18 03:55] LABS: APTT 27.2 Sec (23.4-35.0)
[2025-02-18 03:58] LABS: Hematocrit 30.0 % (39.0-52.0); Hemoglobin 10.0 g/dL (13.0-18.0); Mean Corp Hgb Conc. 33.3 g/dL (33.0-37.0); Mean Corpuscular Volume 89.8 fL (80.0-94.0); Platelet Count 122 10^3/uL (130-400); Red Cell Dist. Width 13.0 % (11.5-14.5)
[2025-02-18 04:33] LABS: Blood Urea Nitrogen 18 mg/dl (9-20); Calcium 8.3 mg/dl (8.4-10.2); Carbon Dioxide 21 mmol/L (22-30); Chloride 110 mmol/L (98-107); Estimated Creatinine Clearance 38 ml/min; Glucose 95 mg/dl (70-99); Potassium 3.9 mmol/L (3.5-5.1); Sodium 138 mmol/L (135-145); eGFR 58.17
--- NOTE | 2025-02-18 06:48 | W.PN.INTV ---
Today's Communication / Plan
Recommendations
Pressors have been weaned off
Hemoglobin stable, creatinine and urine output adequate
Discontinue Jin catheter
Ambulate
Disposition efforts
Assessment
-
89-year-old male with history of hypertension, hyperlipidemia, presents with expressive aphasia with subsequently resolved, admitted 02/15/2025. Imaging revealed significant left carotid stenosis severe with large amount of mixed plaque. Patient
underwent left carotid endarterectomy without complication 02/17.
S/p LCEA, bovine patch angioplasty, 02/17/25
Expressive aphasia, resolved
Admitted 02/15/2025
Hypotension, requiring pressors
Conditions present prior to admission
Hypertension/hyperlipidemia
History of hyperaldosteronism
Chronic kidney disease, baseline creatinine 1.2
History of anemia
GERD
History of prostate cancer
Distant tobacco history
Plan/recommendations
At this time, patient is critically ill post carotid endarterectomy but appears comfortable. He is without complaints.
He denies any headache
He was on pressors overnight, this has been weaned off this morning
Anxious for discharge
Urine output adequate, labs adequate
Moving forward, continue with management per vascular surgery
Blood pressure is stable
Neurological exam is nonfocal, cranial nerves intact
Chest x-ray postoperatively without acute findings
EKG sinus rhythm
Pain control
Ambulate, discontinue Jin catheter
Off pressors
Antiplatelet therapy, statin therapy
IV fluids
Reviewed with critical care nursing, primary service
Patient has been seen by vascular surgery. Ongoing disposition efforts
TCCT 31 min
Subjective Dataa
Subjective Data
Date of Service:
Date of Service: February 18, 2025
Subjective:
Patient required initiation of pressors overnight due to hypotension. This morning he is anxious for discharge. He denies headaches, shortness of breath, chest pain, lightheadedness, nausea. Condom cath Jin catheter remains in place. at
bedside
Objective Data
Data Reviewed
Vital Signs / I&O / Oxygen:
Vital Signs
Temp Pulse Resp BP Pulse Ox
98 F 55 14 120/61 94
02/18/25 03:29 02/18/25 04:45 02/18/25 04:45 02/18/25 04:43 02/18/25 04:45
Intake and Output
02/16/25 02/17/25 02/18/25
06:59 06:59 06:59
Intake Total 480 / 480 840 / 840 1528 / 1528
Output Total 900 / 900 2250 / 2250
Balance -420 / -420 840 / 840 -722 / -722
SaO2 94
Nasal Cannula flow liters per 2
minute
Physical Exam
General: Comfortable and Other (Left neck incision with ecchymosis but otherwise intact)
HEENT: Normocephalic and Anicteric
Cardiovascular: S1-S2, Regular Rhythm and Murmur (n)
Respiratory: Wheeze (n), Crackles (n), Rhonchi (n) and Non-Labored Respirations
GI: Soft, Non Distended and Non Tender
Neurology: Awake, Alert, Oriented and No Motor Deficits (Moving all extremities)
Skin: Jaundice (n) and Rash (n)
Labs/Micro/Reports
Lab Data
02/18/25 03:29
02/18/25 03:29
Laboratory Results
02/17/25 02/17/25 02/18/25
06:01 10:57 03:29
PT 14.3 15.4 H 14.2
INR 1.05 1.19 1.07
APTT 28.1 27.8 27.2
--- NOTE | 2025-02-18 07:06 | PTCARENOTE ---
Pt Aox3, VSS, remains on Bart to keep SBP 100-165. NIH-0. Left carotid incision CDI. ecchymotic.
[2025-02-18] MEDS: PLAVIX 75 MG PO (08:07)
[2025-02-18] MEDS: PROTONIX 40 MG PO (08:07)
[2025-02-18] MEDS: CRESTOR 10 MG PO (08:07)
[2025-02-18] MEDS: LOW STRENGTH ASPIRIN 81 MG PO (08:07)
[2025-02-18] MEDS: NON-FORMULARY ITEM 1 CAP PO (08:08)
[2025-02-18] MEDS: ORETIC PO (08:09)
[2025-02-18] MEDS: ALDACTONE 25 MG PO (08:10)
--- NOTE | 2025-02-18 08:29 | W.PN.VS ---
Today's Communication / Plan
-
surgically stable for discharge
pt eager to go home
Assessment/Plan
-
s/p cea
- doing well
- ok for discharge from surgical standpoint
- follow up in two weeks
- call with questions
Subjective Data
-
Date of Service: February 18, 2025
doing great
no complaints
Objective Data
-
Vital Signs
Temp Pulse Resp BP Pulse Ox
98.1 F 62 10 134/63 92
02/18/25 07:08 02/18/25 07:00 02/18/25 07:00 02/18/25 07:00 02/18/25 07:00
Intake and Output
02/17/25 02/18/25 02/19/25
06:59 06:59 06:59
Intake Total 840 / 840 1712 / 1804 172 / 172
Output Total 2450 / 2450
Balance 840 / 840 -738 / -646 172 / 172
Intake:
Oral fluids 840 / 840 480 / 480
IV fluids (Total) 1232 / 1324 172 / 172
Bart 102 / 114
Normosol 250 / 250
Nss 1,000 ml @ 80 mls/hr IV . 880 / 960 160 / 160
[id number] Rx#:[id number]
Output:
Urine, Voided 2450 / 2450
Other:
Number of approximated MODERATE 3
amounts of urine
Lab Results
02/18/25 03:29
02/18/25 03:29
Calcium 8.3 mg/dl (8.4-10.2) L 02/18/25 03:29
Total Bilirubin 1.0 mg/dl (0.2-1.3) 02/15/25 16:47
AST 13 U/L (17-59) L 02/15/25 16:47
ALT 13 U/L (0-50) 02/15/25 16:47
Alkaline Phosphatase 49 U/L (38-126) 02/15/25 16:47
Total Protein 7.8 g/dl (6.3-8.2) 02/15/25 16:47
Albumin 4.8 g/dl (3.5-5.0) 02/15/25 16:47
Physical Exam
-
inc c/d/i
no hematoma
neck soft
strength = bilat
[2025-02-18] MEDS: NSS 1000 IV (10:15)
--- NOTE | 2025-02-18 10:41 | PTCARENOTE ---
Rec'd pt at 0700. Pt AAOx3, follows commands/ELKINS with equal strength. NIHSS-0. Left neck incision with surgical adhesive intact. Pt denies any pain/SOB. Monitor SR with 1st degree AVB. 0800-Bart gtts turned off. Lungs CTA. +BS, abd soft/nt. CC
draining yellow urine. Pt ok to ambulate per MD. Pt placed on tele pack and ambulating in room with at bedside. Pt hopeful for discharge home today.
--- NOTE | 2025-02-18 11:00 | W.PN.HOSP.TC ---
Today's Communication/Plan
-
d/c
Assessment / Plan
Assessment / Plan
Gen: NAD, AAOx3.
Eyes: EOMI, PERRLA, no scleral icterus.
Neck: supple.
CV: Remains RRR, +S1/S2, no m/r/g.
Resp: Remains CTAB, no rales, wheezes, or rhonchi.
Abd: Remains +BS, soft, NT, ND
Skin: No rashes.
Neuro: CN 2-12 intact, non-focal.
Psych: Normal mood and affect.
CT brain:
1. No CT evidence for acute intracranial hemorrhage or transcortical infarct.
2. SEVERE WHITE MATTER LEUKOARAIOSIS in the frontal and parietal lobes.
3. Small chronic infarcts in the periventricular left frontal lobe and left caudate nucleus.
4. Severe right temporal lobe volume loss. Moderate volume loss in the left temporal lobe, parietal lobes, and frontal lobes suggesting a CHRONIC NEURODEGENERATIVE DISEASE.
5. Severe calcific atherosclerotic plaque in the intracranial internal carotid and vertebral arteries.
NECK CTA:
1. SEVERE STENOSIS (greater than 70% diameter) in the PROXIMAL LEFT ICA caused by a large amount of soft and calcific atherosclerotic plaque.
2. Less than 50% diameter stenosis in the proximal right ICA.
3. 50-70% diameter stenosis at the origin of the left vertebral artery.
4. No CTA evidence for stenosis or occlusion of the right vertebral artery.
5. 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 Mild multilevel cervical spinal cord compression and central canal stenosis. Severe bilateral neural foraminal narrowing.
HEAD CTA:
1. Severe calcific atherosclerotic plaque in both intracranial internal carotid arteries causing 50-70% diameter stenosis in the clinoid segments bilaterally (left greater than right).
2. Severe calcific atherosclerotic plaque in both intracranial vertebral arteries causing less than 50% diameter stenosis.
3. 50-70% diameter stenosis in the P1 segment of the right posterior cerebral artery.
4. Severe white matter leukoaraiosis in both cerebral hemispheres.
5. Small chronic periventricular white matter infarct in the posterior left frontal lobe.
6. Moderate cerebral and cerebellar volume loss (greatest in the right temporal lobe).
MRI brain:
1. MANY SMALL ACUTE ISCHEMIC INFARCTS throughout the cortical collins matter and subcortical white matter of the left frontal lobe, left parietal lobe, and superior left temporal lobe (LEFT MIDDLE CEREBRAL ARTERY TERRITORY).
2. Severe white matter leukoaraiosis in the frontal and parietal lobes.
3. Small chronic infarct in the right cerebellar hemisphere.
4. Small chronic intraparenchymal microhemorrhage in the posterior right parietal lobe.
5. SEVERE BILATERAL TEMPORAL LOBE VOLUME LOSS consistent with a severe chronic neurodegenerative disease (probably Alzheimer's dementia).
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
-generalized weakness and dysarthria/slurred speech on admission
-with severe stenosis in the proximal L-ICA
-h/o CVA 2005
-cont ASA/statin/Plavix
-neuro and vascular surgery saw in consultation
-s/p L CEA 02/17/25.
-cleared for d/c by vascular surgery
- Discussed with neurology, Dr. Ugarte, today
Other problems:
Essential HTN: cont Aldactone/HCTZ
Hyperaldosteronism: cont aldactone
HLD: Cont statin
CKD3b
Chronic anemia: Hb stable
GERD: cont PPI
h/o prostate CA
FULL/SCDs
Total time spent on d/c = 35 min. This included today's physical exam, progress note, review of laboratory and diagnostic data, preparation of discharge documents and prescriptions, and discussions about the pt's hospital course and discharge plan
with the patient and other medical records receptionist involved in the patient's care.
Anticipated Discharge: Today
Subjective/Interval History
-
Date of Service: February 18, 2025
No new complaints. Asking to go home.
Objective Data
-
Labs:
Laboratory Results
02/18/25
03:29
WBC 10.9 H
Hgb 10.0 L
Hct 30.0 L
Plt Count 122 L
PT 14.2
INR 1.07
APTT 27.2
Sodium 138
Potassium 3.9
Chloride 110 H
Carbon Dioxide 21 L
BUN 18
Creatinine 1.2
Glucose 95
Calcium 8.3 L
Vital Signs:
Vital Signs
Temp Pulse Resp BP Pulse Ox
98.1 F 70 29 119/57 98
02/18/25 07:08 02/18/25 10:45 02/18/25 10:15 02/18/25 10:00 02/18/25 10:15
I&O
02/17/25 02/18/25 02/19/25
06:59 06:59 06:59
Intake Total 840 / 840 1712 / 1804 332 / 332
Output Total 2450 / 2450 1100 / 1100
Balance 840 / 840 -738 / -646 -768 / -768
--- NOTE | 2025-02-18 11:23 | CM ---
Pt s/p CEA and is (I) amb and adls, back to baseline.
Pt lives with his in a 1 story home, no entry steps.
Plan: Discharge to home with no identified needs. Spouse will transport home.
--- NOTE | 2025-02-18 12:12 | PTCARENOTE ---
Discharge instructions rec'd. Reviewed instructions and script for labwork with pt and . Questions answered. Peripheral IVs and tele pack removed. Pt showered prior to discharge. Discharged home at approx 1210.
--- NOTE | 2025-02-19 13:53 | W.DCSUMMARY ---
Discharge Summary
Discharge Data
Date of Admission: 02/17/25
Date of Discharge: 02/18/25
-
Pending Results: No
Hospital Course
Primary diagnoses:
Acute L-MCA distribution cerebrovascular accidents due to L carotid artery stenosis s/p L carotid endarterectomy
Secondary diagnoses:
h/o cerebrovascular accident in 2005
Essential hypertension
Hyperaldosteronism
Hyperlipidemia
Chronic disease state 3b
Chronic anemia
Gastroesophageal reflux disease
h/o prostate cancer
Consultants:
Neurology
Vascular surgery
Critical care medicine
Imaging:
CT brain:
1. No CT evidence for acute intracranial hemorrhage or transcortical infarct.
2. SEVERE WHITE MATTER LEUKOARAIOSIS in the frontal and parietal lobes.
3. Small chronic infarcts in the periventricular left frontal lobe and left caudate nucleus.
4. Severe right temporal lobe volume loss. Moderate volume loss in the left temporal lobe, parietal lobes, and frontal lobes suggesting a CHRONIC NEURODEGENERATIVE DISEASE.
5. Severe calcific atherosclerotic plaque in the intracranial internal carotid and vertebral arteries.
NECK CTA:
1. SEVERE STENOSIS (greater than 70% diameter) in the PROXIMAL LEFT ICA caused by a large amount of soft and calcific atherosclerotic plaque.
2. Less than 50% diameter stenosis in the proximal right ICA.
3. 50-70% diameter stenosis at the origin of the left vertebral artery.
4. No CTA evidence for stenosis or occlusion of the right vertebral artery.
5. 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 Mild multilevel cervical spinal cord compression and central canal stenosis. Severe bilateral neural foraminal narrowing.
HEAD CTA:
1. Severe calcific atherosclerotic plaque in both intracranial internal carotid arteries causing 50-70% diameter stenosis in the clinoid segments bilaterally (left greater than right).
2. Severe calcific atherosclerotic plaque in both intracranial vertebral arteries causing less than 50% diameter stenosis.
3. 50-70% diameter stenosis in the P1 segment of the right posterior cerebral artery.
4. Severe white matter leukoaraiosis in both cerebral hemispheres.
5. Small chronic periventricular white matter infarct in the posterior left frontal lobe.
6. Moderate cerebral and cerebellar volume loss (greatest in the right temporal lobe).
MRI brain:
1. MANY SMALL ACUTE ISCHEMIC INFARCTS throughout the cortical collins matter and subcortical white matter of the left frontal lobe, left parietal lobe, and superior left temporal lobe (LEFT MIDDLE CEREBRAL ARTERY TERRITORY).
2. Severe white matter leukoaraiosis in the frontal and parietal lobes.
3. Small chronic infarct in the right cerebellar hemisphere.
4. Small chronic intraparenchymal microhemorrhage in the posterior right parietal lobe.
5. SEVERE BILATERAL TEMPORAL LOBE VOLUME LOSS consistent with a severe chronic neurodegenerative disease (probably Alzheimer's dementia).
Hospital course: 89-year-old male who presented with chief complaints of dysarthria/slurred speech as well as generalized weakness as outlined in the H&P done on admission. All imaging above and notable for acute cerebrovascular accidents in the
left middle cerebral artery territory in the setting of greater than 70% stenosis of the proximal left internal carotid artery. Patient with was placed on ASA/statin/Plavix. The patient underwent left carotid endarterectomy on 02/17/25 and was
discharged in medically stable condition.
Discharge Plan
-
Patient Disposition: Home (Routine Discharge)
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
Condition: Good
Diet: Low Cholesterol and 2 Gram Sodium
Activity: No strenuous activity
Driving Restrictions: Not until seen by your Dr
Bathing Restrictions: OK to Shower
Blood Work: BMP and CBC in 1 week, prescription from PCP
Stand Alone Forms: Vascular Surg Discharge Instr
Referrals:
Jennifer Arredondo CRNP [Family Provider, Internal Medicine] - in less than 1 week
Manisha Tate CRNP [Specified Professional Personl, Vascular Surgery] - 03/03/25 10:00 am
Referral Note: Vascular surgery office follow-up
Prescriptions:
New
clopidogrel 75 mg Tablet
75 mg PO DAILY Qty: 30 0RF
spironolactone 25 mg Tablet
25 mg PO BID Qty: 60 0RF
pantoprazole 40 mg Tablet,Delayed Release (Dr/Ec)
40 mg PO DAILY Qty: 30 0RF
Continued
aspirin 81 mg Tablet
81 mg PO DAILY
hydrochlorothiazide 25 mg tablet
25 mg PO DAILY
rosuvastatin 10 mg tablet
10 mg PO DAILY
cyanocobalamin (vitamin B-12) 1,000 mcg Tablet
1,000 mcg PO DAILY
zinc 50 mg Tablet
50 mg PO DAILY
ascorbic acid (vitamin C) 500 mg Capsule
500 mg PO DAILY
magnesium glycinate 100 mg magnesium Capsule
400 mg PO DIRECTED
PreserVision AREDS 2 Plus MV 200 mcg-15 mcg- 5 mg-1 mg Capsule
1 cap PO BID
Discontinued
spironolactone 25 mg tablet
50 mg PO DAILY
spironolactone 25 mg tablet
25 mg PO HS
Discharge Orders:
Discharge Patient (As Directed); Ordered 02/18/25
Ordered By: Flo Rodriguez
Discharge Date and Time
Discharge Date/Time: 02/18/25 12:37
Print Language: MARTINIQUAIS
--- NOTE | 2025-02-20 08:56 | CM ---
Patient discharged 02/18/25 to home. transported home.
== END 2025-02-18 12:37 | disposition home or self-care (01) | DRG 38 ==
LOC: ICU 11:41
PROVIDERS: Nurse Practitioner Acute Care; Nurse Practitioner Family; ADMITTING PHYSICIAN Internal Medicine; ATTENDING PHYSICIAN Internal Medicine; CONSULT PHYSICIAN Internal Medicine Critical Care Medicine; CONSULT PHYSICIAN Psychiatry & Neurology Neurology; EMERGENCY PHYSICIAN Emergency Medicine; FAMILY PHYSICIAN Nurse Practitioner Primary Care; OTHER PHYSICIAN Surgery Vascular Surgery
PROC: 03UJ0KZ Supplement Left Common Carotid Artery with Nonautologous Tissue Substitute, Open Approach (ICD-10-PCS; 2025-02-17)
PROC: 03CJ0ZZ Extirpation of Matter from Left Common Carotid Artery, Open Approach (ICD-10-PCS; 2025-02-17)
DX: I65.22 Occlusion and stenosis of left carotid artery (principal); I69.354 Hemiplegia and hemiparesis following cerebral infarction affecting left non-dominant side; M50.021 Cervical disc disorder at C4-C5 level with myelopathy; M50.022 Cervical disc disorder at C5-C6 level with myelopathy; R47.01 Aphasia; H35.30 Unspecified macular degeneration; H40.9 Unspecified glaucoma; N18.32 Chronic kidney disease, stage 3b; I12.9 Hypertensive chronic kidney disease with stage 1 through stage 4 chronic kidney disease, or unspecified chronic kidney disease; I44.0 Atrioventricular block, first degree; M48.02 Spinal stenosis, cervical region; E78.00 Pure hypercholesterolemia, unspecified; E78.49 Other hyperlipidemia; R47.1 Dysarthria and anarthria; E26.9 Hyperaldosteronism, unspecified; K21.9 Gastro-esophageal reflux disease without esophagitis; M47.812 Spondylosis without myelopathy or radiculopathy, cervical region; D64.9 Anemia, unspecified; Z87.891 Personal history of nicotine dependence; Z85.46 Personal history of malignant neoplasm of prostate; Z98.42 Cataract extraction status, left eye; Z98.41 Cataract extraction status, right eye; Z82.3 Family history of stroke; Z82.49 Family history of ischemic heart disease and other diseases of the circulatory system; Z79.82 Long term (current) use of aspirin
CPT/HCPCS: 0042T; 35301; 70450; 70496; 70498; 70551; 71045; 80048; 80053; 80061; 81003; 82962; 83036; 84443; 84484; 85025; 85027; 85610; 85652; 85730; 86850; 86900; 86901; 88304; 88311; 92523; 92610; 93005; 95938; 95941; 95955; 97162; 97166; 99285; Q9967

== ENCOUNTER → 2025-02-27 08:21 | Outpatient (REF) | payer OTHER, SELFPAY ==
[2025-02-27 09:30] LABS: Hematocrit 33.1 % (39.0-52.0); Hemoglobin 10.6 g/dL (13.0-18.0); Mean Corp Hgb Conc. 32.0 g/dL (33.0-37.0); Mean Corpuscular Volume 91.9 fL (80.0-94.0); Nucleated Red Blood Cells % 0 % (-); Platelet Count 200 10^3/uL (130-400); Red Cell Dist. Width 14.3 % (11.5-14.5)
[2025-02-27 09:53] LABS: ALT (SGPT) 12 U/L (0-50); AST (SGOT) 16 U/L (17-59); Albumin 4.3 g/dl (3.5-5.0); Alkaline Phosphatase 49 U/L (38-126); Blood Urea Nitrogen 25 mg/dl (9-20); Calcium 9.3 mg/dl (8.4-10.2); Carbon Dioxide 24 mmol/L (22-30); Chloride 106 mmol/L (98-107); Glucose 108 mg/dl (70-99); Iron 123 ug/dl (49-181); Potassium 3.8 mmol/L (3.5-5.1); Sodium 139 mmol/L (135-145); Total Protein 7.4 g/dl (6.3-8.2); eGFR 48.34
[2025-02-27 10:04] LABS: Total Iron Binding Capacity 326 ug/dl (261-462)
[2025-02-27 10:27] LABS: Ferritin 44.5 ng/ml (17.9-464.0)
== END ==
LOC: HWLAB 08:21
PROVIDERS: ATTENDING PHYSICIAN Nurse Practitioner Primary Care; OTHER PHYSICIAN Specialist; REFERRING PHYSICIAN Surgery Vascular Surgery
DX: Z98.890 Other specified postprocedural states (principal); I10 Essential (primary) hypertension; E26.9 Hyperaldosteronism, unspecified; D64.9 Anemia, unspecified
CPT/HCPCS: 36415; 80053; 82728; 83540; 83550; 85025

== ENCOUNTER → 2025-04-11 12:41 | Outpatient (REF) | payer OTHER, SELFPAY | LOC: RAD 12:41 | PROVIDERS: ATTENDING PHYSICIAN Registered Nurse; FAMILY PHYSICIAN Nurse Practitioner Primary Care | DX: I65.22 Occlusion and stenosis of left carotid artery (principal) | CPT/HCPCS: 93880 ==

== ENCOUNTER → 2025-05-29 08:14 | Outpatient (REF) | payer OTHER, SELFPAY ==
[2025-05-29 10:27] LABS: Blood Urea Nitrogen 26 mg/dl (9-20); Calcium 9.6 mg/dl (8.4-10.2); Carbon Dioxide 27 mmol/L (22-30); Chloride 102 mmol/L (98-107); Glucose 107 mg/dl (70-99); Potassium 3.7 mmol/L (3.5-5.1); Sodium 138 mmol/L (135-145); eGFR 48.34
== END ==
LOC: HWLAB 08:14
PROVIDERS: ATTENDING PHYSICIAN Specialist; FAMILY PHYSICIAN Nurse Practitioner Primary Care
DX: N18.32 Chronic kidney disease, stage 3b (principal); I10 Essential (primary) hypertension; E26.9 Hyperaldosteronism, unspecified
CPT/HCPCS: 36415; 80048

== ENCOUNTER 2025-06-04 13:45 | Emergency (ER) | payer OTHER, SELFPAY ==
[2025-06-04 13:55] VITALS: BP 139/78
[2025-06-04 14:25] LABS: Hematocrit 37.1 % (39.0-52.0); Hemoglobin 12.3 g/dL (13.0-18.0); Mean Corp Hgb Conc. 33.2 g/dL (33.0-37.0); Mean Corpuscular Volume 91.2 fL (80.0-94.0); Nucleated Red Blood Cells % 0 % (-); Platelet Count 167 10^3/uL (130-400); Red Cell Dist. Width 13.1 % (11.5-14.5)
[2025-06-04 14:35] LABS: ALT (SGPT) 16 U/L (0-50); AST (SGOT) 19 U/L (17-59); Albumin 4.8 g/dl (3.5-5.0); Alkaline Phosphatase 48 U/L (38-126); Blood Urea Nitrogen 32 mg/dl (9-20); Calcium 9.5 mg/dl (8.4-10.2); Carbon Dioxide 28 mmol/L (22-30); Chloride 100 mmol/L (98-107); Glucose 118 mg/dl (70-99); Potassium 4.5 mmol/L (3.5-5.1); Sodium 133 mmol/L (135-145); Total Protein 8.4 g/dl (6.3-8.2); eGFR 48.34
[2025-06-04 14:47] LABS: Troponin I < 0.012 ng/ml
--- NOTE | 2025-06-04 16:30 | EDRN ---
the pt approached this RN in the hallway and asked when they were going to see a doctor, and this RN notified the pt that this RN would speak to a provider so that they could be seen, this RN walked with the pt into their room and this RN asked the
pt if the pt would mind changing into a patient gown so that this RN could place the pt on the monitor and obtain vital signs, the pt stated, 'Theres no need for all of that I just need to speak to a doctor so they can tell me what's going on with
me and why my blood pressures are erratic when I am sleeping', this RN offered again to take the pts blood pressure and vital signs and the pt refused and stated, 'I am staying in my clothes thank you, i will wait right here for the doctor thank
you', the pt was insisting on waiting outside of his room near the charge nurse desk however this RN kindly asked the pt to wait in his room and the pt was agreeable
--- NOTE | 2025-06-04 18:15 | EDRN ---
the pts approached this RN at the nurses station and asked this RN, 'Excuse me when will my be seen by a doctor, we have been here for a long time', this RN apologized for the wait time and appreciated the pt and the pts 's
patience, this RN entered the pts room and apologized again and notified the pt and the pts that a provider would be in to see the pt when they could, this RN offered again to obtain vital signs and the pt refused and wanted to wait for the
doctor, the pt is walking around in the room, no s/s of distress
--- NOTE | 2025-06-04 18:28 | EDRN ---
Dr. Blancas currently at the pts bedside speaking with the pt and the pts
--- NOTE | 2025-06-04 18:46 | EDRN ---
this RN is handing off report to receiving shift superintendent nurse Tiarra GLEZ and notified the receiving nurse that an assessment was not done due to the pt refusing one
--- NOTE | 2025-06-04 18:50 | ED.GENMED ---
History of Present Illness
General
Chief Complaint: Blood Pressure Problem
Time Seen by Provider: 06/04/25 18:27
History of Present Illness
History of Present Illness:
89-year-old male with history of chronic kidney disease and hypertension presenting to the emergency department for concern of fluctuating blood pressures. Patient notes that he has been having issues with his blood pressure, and feels like
particularly at nighttime his pressure rises he has difficulty sleeping. Last week he followed with his kidney doctor who increased his medication. He increased both his spironolactone and his hydrochlorothiazide. No reports of headache at
nighttime as blood pressure is high otherwise denies chest pain, difficulty breathing, visual changes, weakness. Denies any present complaints. Denies additional acute medical complaints
Past History
Past History
ED Past Medical History: CVA, HTN and Other (Macular degeneration, glaucoma)
ED Past Surgical History: None
Social History
Tobacco: Former smoker
Alcohol: None
Drug: None
Personal:
Living: with family
Employment: Retired
Family History
Family History: Other (Noncontributory)
Phy Exam
Physical Exam
Physical Exam:
General: Well-appearing, no clinical signs of dehydration, nontoxic and in no acute distress
HEENT: protecting airway
Neck: appears supple
CV: Normal heart rate, regular rhythm
Resp: No accessory muscle use, no increased work of breathing, lungs clear to auscultation bilaterally
Abd: No distention
Extremities: No deformities, no swelling
Neuro: alert, no focal neurologic deficit
: deferred
Rectal: deferred
Psych: Normal affect
Skin: Intact
Course
Orders/Labs/Results
Orders:
Orders
06/04/25 13:59
ECG [Electrocardiogram (*1)] Urgent
Reason for Study: Hypertension, Benign
EKG- Treatment ONCE
06/04/25 14:08
Complete Blood Count/With Diff Urgent
Comprehensive Metabolic Panel Urgent
Troponin I Urgent
Abnormal Lab Results
06/04/25
14:08
RBC 4.07 L 10^6/uL
(4.70-6.10)
Hgb 12.3 L g/dL
(13.0-18.0)
Hct 37.1 L %
(39.0-52.0)
MPV 10.7 H fL
(7.4-10.4)
Abs Immat Gran (auto) 0.1 H 10^3/uL
(0-0.05)
Immature Gran % 0.8 H %
(0-0.5)
Sodium 133 L mmol/L
(135-145)
BUN 32 H mg/dl
(9-20)
Creatinine 1.4 H mg/dL
(0.7-1.3)
Glucose 118 H mg/dl
(70-99)
Total Bilirubin 1.4 H mg/dl
(0.2-1.3)
Total Protein 8.4 H g/dl
(6.3-8.2)
06/04/25 14:08
06/04/25 14:08
Vital Signs
Initial and Last Documented VS:
Initial Vital Signs
Temp Pulse Resp BP Pulse Ox
97.8 F 84 16 139/78 97
06/04/25 13:55 06/04/25 13:55 06/04/25 13:55 06/04/25 13:55 06/04/25 13:55
Last Documented Vital Signs
Temp Pulse Resp BP Pulse Ox
97.8 F 84 16 139/78 97
06/04/25 13:55 06/04/25 13:55 06/04/25 13:55 06/04/25 13:55 06/04/25 18:55
MDM/Problems Addressed
MDM/Problems Addressed:
89-year-old male with history of chronic kidney disease and hypertension presenting to the emergency department for fluctuating blood pressures. Vital signs on arrival are normal.
On exam patient comfortably, no acute distress or discomfort. Unremarkable cardiac and pulmonary exam. Patient currently asymptomatic. Without pressing concern for hypertensive urgency or emergency. EKG obtained, nonischemic. Labs obtained,
CKD, otherwise unremarkable. Extensive conversation had with patient and at bedside. Given that medications were just changed last week and blood pressures currently controlled, no current recommendations for acute adjustment. Advised
continued monitoring of his blood pressure as well as interval follow-up with belly packer, who is currently managing his BP. However also encourage cardiac consultation regarding blood pressure medication. Patient does have a briquetter operator.
Return precautions discussed and patient verbalized understanding
*Pulse Oximetry
SaO2: 97
Oxygen Mode of Delivery: Room air
Patient hypoxic: no
*EKG
Interpreted by ED Provider?: Yes
EKG Intrepretation Date: 06/04/25
EKG Intrepretation Time: 18:52
Interpretation: normal
Comparison EKG: no changes
Heart Rate: 73
Rate: normal
Rhythm: sinus
[place]: normal axis
Interval: normal interval
QRS Pattern: normal QRS
Ischemia: no ischemia
*Critical Care Note
Total Time (30-74mins, 75-104mins- exclusive of procedures): Not Applicable
ED Attending Note
-
Portions of this chart may have been created with voice recognition software.� Occasional wrong word or��sound alike� substitutions may have occurred due to the inherent limitations of voice recognition software.
Discharge Plan
Departure
Patient Disposition: Home (Routine Discharge)
Date of Disposition: 06/04/25
Time of Disposition: 18:55
Patient with high blood pressure during this ER visit?: No
Condition: Good
Discharge Problem:
Hypertension
Instructions: High Blood Pressure (DC)
Prescriptions:
No Action
aspirin 81 mg Tablet
81 mg PO DAILY
hydrochlorothiazide 25 mg tablet
25 mg PO DAILY
rosuvastatin 10 mg tablet
10 mg PO DAILY
cyanocobalamin (vitamin B-12) 1,000 mcg Tablet
1,000 mcg PO DAILY
zinc 50 mg Tablet
50 mg PO DAILY
ascorbic acid (vitamin C) 500 mg Capsule
500 mg PO DAILY
magnesium glycinate 100 mg magnesium Capsule
400 mg PO DIRECTED
PreserVision AREDS 2 Plus MV 200 mcg-15 mcg- 5 mg-1 mg Capsule
1 cap PO BID
clopidogrel 75 mg Tablet
75 mg PO DAILY Qty: 30 0RF
spironolactone 25 mg Tablet
25 mg PO BID Qty: 60 0RF
pantoprazole 40 mg Tablet,Delayed Release (Dr/Ec)
40 mg PO DAILY Qty: 30 0RF
Referrals:
Arnold Rivera MD [Family Provider, Internal Medicine]
Activity Restrictions/Additional Instructions:
You were seen in the emergency department for elevated blood pressure
You were found to have reassuring EKG, laboratory analysis, vital signs.
Please follow-up closely with both your briquetter operator and your belly packer
Return to the emergency department for any worsening of your symptoms, or any development of chest pain, difficulty breathing, abdominal pain with persistent vomiting and inability to tolerate food or liquid by mouth (concern for dehydration),
weakness, headache or confusion, fever greater than 100.4, or any additional symptoms that are concerning to you.
Thank you for choosing [facility].
Discharge Date and Time
Print Language: YI
== END 2025-06-04 19:05 | disposition home or self-care (01) ==
LOC: EMR 13:45
PROVIDERS: Emergency Medicine; EMERGENCY PHYSICIAN Student in an Organized Health Care Education/Training Program; FAMILY PHYSICIAN Internal Medicine Geriatric Medicine
DX: I12.9 Hypertensive chronic kidney disease with stage 1 through stage 4 chronic kidney disease, or unspecified chronic kidney disease (principal); N18.9 Chronic kidney disease, unspecified; H40.9 Unspecified glaucoma; H35.30 Unspecified macular degeneration; Z79.82 Long term (current) use of aspirin; Z79.02 Long term (current) use of antithrombotics/antiplatelets; Z86.73 Personal history of transient ischemic attack (TIA), and cerebral infarction without residual deficits; Z87.891 Personal history of nicotine dependence
CPT/HCPCS: 99284; 80053; 84484; 85025; 93005

== ENCOUNTER → 2025-06-15 07:53 | Outpatient (REF) | payer OTHER, SELFPAY ==
[2025-06-15 10:28] LABS: Hematocrit 38.8 % (39.0-52.0); Hemoglobin 12.1 g/dL (13.0-18.0); Mean Corp Hgb Conc. 31.2 g/dL (33.0-37.0); Mean Corpuscular Volume 93.5 fL (80.0-94.0); Nucleated Red Blood Cells % 0 % (-); Platelet Count 166 10^3/uL (130-400); Red Cell Dist. Width 13.7 % (11.5-14.5)
[2025-06-15 10:46] LABS: Blood Urea Nitrogen 31 mg/dl (9-20); Calcium 9.4 mg/dl (8.4-10.2); Carbon Dioxide 25 mmol/L (22-30); Chloride 101 mmol/L (98-107); Glucose 86 mg/dl (70-99); Potassium 3.8 mmol/L (3.5-5.1); Sodium 134 mmol/L (135-145); eGFR 44.50
== END ==
LOC: HWLAB 07:53
PROVIDERS: ATTENDING PHYSICIAN Nurse Practitioner Primary Care
DX: E61.1 Iron deficiency (principal); E78.2 Mixed hyperlipidemia; E55.9 Vitamin D deficiency, unspecified; D64.9 Anemia, unspecified
CPT/HCPCS: 36415; 80048; 85025

== ENCOUNTER → 2025-06-27 08:40 | Outpatient (REF) | payer OTHER, SELFPAY ==
[2025-06-27 12:18] LABS: Magnesium 2.0 mg/dl (1.6-2.3)
[2025-06-27 17:36] LABS: Urine Character Slightly Cloudy (Clear)
[2025-06-27 17:46] LABS: Urine Squamous Cell 0-2 /LPF (Few)
[2025-06-27 17:47] LABS: Urine Red Blood Cell 0-2 /HPF (0-2)
== END ==
LOC: HWLAB 08:40
PROVIDERS: ATTENDING PHYSICIAN Specialist; FAMILY PHYSICIAN Nurse Practitioner Primary Care
DX: N18.31 Chronic kidney disease, stage 3a (principal); R30.0 Dysuria
CPT/HCPCS: 36415; 81003; 81015; 83735; 87077; 87086; 87186

== ENCOUNTER → 2025-07-13 11:11 | Outpatient (REF) | payer OTHER, SELFPAY | LOC: HWRAD 11:11 | PROVIDERS: ATTENDING PHYSICIAN Nurse Practitioner Primary Care | DX: Z85.46 Personal history of malignant neoplasm of prostate (principal); N18.31 Chronic kidney disease, stage 3a; R35.0 Frequency of micturition | CPT/HCPCS: 76770 ==

== ENCOUNTER 2025-07-26 12:43 | Emergency (ER) | payer OTHER, SELFPAY ==
[2025-07-26 12:44] VITALS: BP 168/86
[2025-07-26 13:01] LABS: Urine Character Cloudy (Clear)
--- NOTE | 2025-07-26 13:07 | ED.GENMED ---
History of Present Illness
General
Chief Complaint: Male Genito-Urinary Symptoms
Time Seen by Provider: 07/26/25 12:54
History of Present Illness
History of Present Illness:
89-year-old male presents to the emergency department for evaluation of hematuria and urinary urgency. He has a long history of nocturia for several months seems to be getting worse. Does note that he had an outpatient ultrasound recently showing
an elevated PVR. Increased urgency this morning as well as trace hematuria. No fevers or chills. No flank pain but does have some rectal discomfort when sitting
Past History
Past History
ED Past Medical History: CVA, HTN and Other (Macular degeneration, glaucoma)
ED Past Surgical History: None
Social History
Tobacco: Former smoker
Alcohol: None
Drug: None
Personal:
Living: with family
Employment: Retired
Family History
Family History: Other (Noncontributory)
Review of Systems
Review of Systems
Allergies reviewed?: Yes
All Other Systems: ROS reviewed and negative except as documented in HPI and ROS
Phy Exam
Physical Exam
Physical Exam:
GEN: Well appearing, NAD, WDWN
HEENT: Oral mucosa moist, no scleral icterus
Cardiac: Regular rate
Lung: No respiratory distress, no tachypnea
Abdomen: Soft, grossly nontender
MSK: No gross deformity or injuries
Skin: Good color, no pallor or jaundice, no rashes
Neuro: AO x3, moves all extremities freely
Psych: Calm, cooperative
Course
Orders/Labs/Results
Orders:
Orders
07/26/25 12:51
Urinalysis Reflex To Culture Urgent
Date Specimen was Collected: 07/26/25
Time Specimen was Collected: 12:47
Urine Microscopic Reflex Cult Urgent
Urine Culture Urgent
GERARD Source: U
Specimen Description:
Date Specimen was Collected: 07/26/25
Time Specimen was Collected: 12:47
Abnormal Lab Results
07/26/25
12:51
Ur Occult Blood Reflex 4+ A
(Negative)
Leukocyte Esterase Rfl 3+ A
(Negative)
Urine RBC >100 A /HPF
(0-2)
Urine WBC (Reflex) >100 A /HPF
(0-5)
Urine Bacteria (Reflex) Many A
(Negative)
Urine Albumin (Reflex) 2+ A
(Neg - Trace)
Vital Signs
Initial and Last Documented VS:
Initial Vital Signs
Temp Pulse Resp BP Pulse Ox
98.0 F 63 16 168/86 98
07/26/25 12:44 07/26/25 12:44 07/26/25 12:44 07/26/25 12:44 07/26/25 12:44
Last Documented Vital Signs
Temp Pulse Resp BP Pulse Ox
98.0 F 63 16 168/86 98
07/26/25 12:44 07/26/25 12:44 07/26/25 12:44 07/26/25 12:44 07/26/25 13:08
MDM/Problems Addressed
MDM/Problems Addressed:
Hematuria is most likely infectious based on urinalysis results. He does have significant postvoid residual in excess of 300 mL, he is very apprehensive to the idea of a Jin catheter, at this time a one-time straight catheter was performed and he
will be started on alpha blockers in the hopes that this provides some benefit to his urinary voiding issues. Encourage close follow-up with urology. Advised that medical therapy for BPH is rarely beneficial with large PVRs in this case
*Pulse Oximetry
SaO2: 98
Oxygen Mode of Delivery: Room air
Patient hypoxic: no
*Critical Care Note
Total Time (30-74mins, 75-104mins- exclusive of procedures): Not Applicable
ED Attending Note
-
Portions of this chart may have been created with voice recognition software.� Occasional wrong word or��sound alike� substitutions may have occurred due to the inherent limitations of voice recognition software.
Discharge Plan
Departure
Patient Disposition: Home (Routine Discharge)
Date of Disposition: 07/26/25
Time of Disposition: 13:18
Patient with high blood pressure during this ER visit?: No
Discharge Problem:
Acute prostatitis
Instructions: Prostatitis (DC)
Prescriptions:
New
levofloxacin 500 mg tablet
500 mg PO DAILY Qty: 14 0RF
tamsulosin 0.4 mg capsule
0.4 mg PO HS Qty: 30 0RF
No Action
aspirin 81 mg Tablet
81 mg PO DAILY
hydrochlorothiazide 25 mg tablet
25 mg PO DAILY
rosuvastatin 10 mg tablet
10 mg PO DAILY
cyanocobalamin (vitamin B-12) 1,000 mcg Tablet
1,000 mcg PO DAILY
zinc 50 mg Tablet
50 mg PO DAILY
ascorbic acid (vitamin C) 500 mg Capsule
500 mg PO DAILY
magnesium glycinate 100 mg magnesium Capsule
400 mg PO DIRECTED
PreserVision AREDS 2 Plus MV 200 mcg-15 mcg- 5 mg-1 mg Capsule
1 cap PO BID
clopidogrel 75 mg Tablet
75 mg PO DAILY Qty: 30 0RF
spironolactone 25 mg Tablet
25 mg PO BID Qty: 60 0RF
pantoprazole 40 mg Tablet,Delayed Release (Dr/Ec)
40 mg PO DAILY Qty: 30 0RF
Referrals:
Thom Loera Jr., MD [Active, Urology] - Call in 1-3 days for appt
Interventions
Interventions:
*General Assessment Last Done: 07/26/25 12:44
*Neglect/Abuse Screening Last Done: 07/26/25 12:44
*ED COVID-19 Vaccine History Last Done: 07/26/25 12:44
*ED Influenza Vaccine History Last Done: 07/26/25 13:33
[facility] Risk Assessment Tool Last Done: 07/26/25 13:40
*Risk Screen - Suicide (C-SSRS) Last Done: 07/26/25 12:44
*Nursing Disposition Last Done: 07/26/25 13:40
ED-Male Genitourinary Assessment Last Done: 07/26/25 13:33
Discharge Date and Time
Discharge Date/Time: 07/26/25 13:40
Print Language: [place]
[2025-07-26 13:22] LABS: Urine Red Blood Cell >100 /HPF (0-2); Urine Squamous Cell 0-2 /LPF (Few); Urine White Cell >100 /HPF (0-5)
== END 2025-07-26 13:40 | disposition home or self-care (01) ==
LOC: EMR 12:43
PROVIDERS: Physician Assistant; EMERGENCY PHYSICIAN Emergency Medicine; FAMILY PHYSICIAN Nurse Practitioner Primary Care
DX: N41.0 Acute prostatitis (principal); B96.20 Unspecified Escherichia coli [E. coli] as the cause of diseases classified elsewhere; N40.1 Benign prostatic hyperplasia with lower urinary tract symptoms; R35.1 Nocturia; I10 Essential (primary) hypertension; H40.9 Unspecified glaucoma; H35.30 Unspecified macular degeneration; Z79.82 Long term (current) use of aspirin; Z79.02 Long term (current) use of antithrombotics/antiplatelets; Z86.73 Personal history of transient ischemic attack (TIA), and cerebral infarction without residual deficits; Z87.891 Personal history of nicotine dependence
CPT/HCPCS: 99283; 51701; 81003; 81015; 87077; 87086; 87186